=== PATIENT | male | born 1950 | race Caucasian/White ===

== ENCOUNTER 2020-02-29 08:02 | Outpatient (REF) | payer MEDICARE, MEDICAID, SELFPAY ==
[2020-02-29 09:19] LABS: Estimated Average Glucose 111 mg/dL; Hemoglobin A1c % 5.5 %
[2020-02-29 09:30] LABS: Alanine Aminotransferase 22 U/L (0-40); Albumin Level 4.4 g/dL (3.5-5.0); Alkaline Phosphatase 46 U/L (39-117); Anion Gap 13 (12-20); Aspartate Amino Transferase 18 U/L (5-37); Bilirubin Total 0.3 mg/dL (0.0-1.0); Blood Urea Nitrogen 18 mg/dL (9-16); Calcium 8.9 mg/dL (8.4-10.2); Carbon Dioxide 25 mmol/L (22-29); Chloride 103 mmol/L (96-108); Cholesterol 190 mg/dL; Estimated Glomerular Filt Rate 56; Glucose Fasting 109 mg/dL (60-99); HDL Cholesterol 49 mg/dL; LDL Cholesterol Calculated 128 mg/dl; Potassium 4.2 mmol/l (3.3-5.1); Sodium 137 mmol/L (135-145); Total Protein 6.7 g/dL (6.5-8.0); Triglycerides 66 mg/dL
[2020-02-29 10:02] LABS: Creatinine Urine 123.75 mg/dL
== END 2020-02-29 08:03 | disposition home or self-care (01) ==
LOC: HO.LAB 08:02
PROVIDERS: PCP Internal Medicine; Visit Provider Internal Medicine
DX: E11.65 Type 2 diabetes mellitus with hyperglycemia (principal); I10 Essential (primary) hypertension; E78.00 Pure hypercholesterolemia, unspecified; R94.5 Abnormal results of liver function studies; E66.3 Overweight
CPT/HCPCS: 36415; 80053; 80061; 82043; 83036

== ENCOUNTER 2020-03-11 07:57 | Outpatient (REF) | payer MEDICARE, MEDICAID, SELFPAY ==
--- NOTE | 2020-03-11 08:03 | XR_ITS ---
EXAMINATION: XR RIBS, LEFT AND CHEST PA CLINICAL INFORMATION: Chondrocostal junction syndrome COMPARISON: None TECHNIQUE: 3 views of the left ribs were obtained. Chest one view FINDINGS: CHEST: Lungs are clear. No consolidation, pneumothorax, or pleural effusion. The cardiomediastinal silhouette and pulmonary vasculature are normal. No gross bony abnormality seen. Left RIBS: Multiple views of left ribs reveal no visible fracture or bony abnormality especially where lead marker has been placed along the lower chest XR/XR ribs LT min 3V w CXR1V IMPRESSION: The lungs are hyperinflated but clear of acute process. The heart size and pulmonary vascularity is normal. No gross bony abnormality seen.
== END 2020-03-11 07:58 | disposition home or self-care (01) ==
LOC: HO.XRAY 07:57
PROVIDERS: PCP Internal Medicine; Visit Provider Internal Medicine
DX: M94.0 Chondrocostal junction syndrome [Tietze] (principal)
CPT/HCPCS: 71101

== ENCOUNTER 2020-10-03 07:44 | Outpatient (REF) | payer MEDICARE, SELFPAY ==
[2020-10-03 09:13] LABS: MANUAL DIFF FLAG NO
[2020-10-03 09:20] LABS: Basophils Absolute Auto 0.1 X10*3/uL (0.0-0.2); Basophils Percent Auto 1.5 % (0-2); Eosinophils Absolute Auto 0.2 X10*3/uL (0.0-0.4); Hematocrit 40.8 % (42-52); Hemoglobin 14.1 g/dl (14.0-18.0); Imm Gran Abs Auto 0.04 X10*3/uL (0.00-0.03); Imm Gran Pct Auto 0.9 % (0.0-0.4); Lymphocytes Absolute Auto 1.5 X10*3/uL (1.2-4.9); Mean Corpuscular HGB Conc 34.6 g/dl (31.0-36.0); Mean Corpuscular Hemoglobin 30.1 pg (27.0-33.0); Mean Corpuscular Volume 87.2 fL (80-98); Mean Platelet Volume 10.5 fL (9.4-12.4); Monocytes Absolute Auto 0.4 X10*3/uL (0.1-1.2); Monocytes Percent Auto 8.7 % (2-11); Neutrophils Absolute Auto 2.3 X10*3/uL (2.0-8.3); Neutrophils Percent Auto 50.9 % (45-73); Platelet Count 206 X10*3/uL (160-400); Red Blood Count 4.68 X10*6/uL (4.60-5.80); Red Cell Distribution Width 13.3 % (11.0-16.0); White Blood Count 4.6 X10*3/uL (4.8-10.8)
[2020-10-03 09:32] LABS: Estimated Average Glucose 108 mg/dL; Hemoglobin A1c % 5.4 %
[2020-10-03 09:41] LABS: Alanine Aminotransferase 23 U/L (0-40); Albumin Level 4.3 g/dL (3.5-5.0); Alkaline Phosphatase 48 U/L (39-117); Anion Gap 10 (12-20); Aspartate Amino Transferase 21 U/L (5-37); Bilirubin Total 0.6 mg/dL (0.0-1.0); Blood Urea Nitrogen 17 mg/dL (9-16); Calcium 9.2 mg/dL (8.4-10.2); Carbon Dioxide 26 mmol/L (22-29); Chloride 105 mmol/L (96-108); Cholesterol 190 mg/dL; Estimated Glomerular Filt Rate 60; Glucose Random 101 mg/dL (60-115); HDL Cholesterol 55 mg/dL; LDL Cholesterol Calculated 122 mg/dl; Potassium 4.2 mmol/L (3.3-5.1); Sodium 137 mmol/L (135-145); Total Protein 6.7 g/dL (6.5-8.0); Triglycerides 67 mg/dL
[2020-10-03 09:52] LABS: Creatinine Urine 48.52 mg/dL; Microalbumin Urine < 5.0 mg/L
[2020-10-03 10:03] LABS: Free T4 (Free Thyroxine) 0.86 ng/dL (0.71-1.85); Prostate Specific Antigen Scr 0.65 ng/mL (<0.05-4.0); Thyroid Stimulating Hormone 1.62 uIU/mL (0.32-4.0)
[2020-10-03 10:12] LABS: Folate 15.1 ng/mL (> or = 4.0); Vitamin B12 486 pg/mL (200-900)
== END 2020-10-03 07:45 | disposition home or self-care (01) ==
LOC: HO.LAB 07:44
PROVIDERS: PCP Internal Medicine; Visit Provider Internal Medicine
DX: Z12.5 Encounter for screening for malignant neoplasm of prostate (principal); E11.65 Type 2 diabetes mellitus with hyperglycemia; E78.00 Pure hypercholesterolemia, unspecified
CPT/HCPCS: 36415; 80053; 80061; 82043; 82607; 82746; 83036; 84153; 84439; 84443; 85025

== ENCOUNTER 2021-03-09 09:14 | Outpatient (REF) | payer MEDICARE, SELFPAY ==
[2021-03-09 09:34] LABS: MANUAL DIFF FLAG NO
[2021-03-09 09:53] LABS: Basophils Absolute Auto 0.1 X10*3/uL (0.0-0.2); Eosinophils Absolute Auto 0.3 X10*3/uL (0.0-0.4); Eosinophils Percent Auto 4.5 % (0-4); Hematocrit 44.1 % (42.0-52.0); Hemoglobin 14.7 g/dl (14.0-18.0); Imm Gran Abs Auto 0.02 X10*3/uL (0.00-0.03); Imm Gran Pct Auto 0.3 % (0.0-0.4); Lymphocytes Absolute Auto 2.2 X10*3/uL (1.2-4.9); Lymphocytes Percent Auto 37.4 % (20-40); Mean Corpuscular HGB Conc 33.3 g/dl (31.0-36.0); Mean Corpuscular Hemoglobin 29.5 pg (27.0-33.0); Mean Corpuscular Volume 88.6 fL (80.0-98.0); Mean Platelet Volume 9.8 fL (9.4-12.4); Monocytes Absolute Auto 0.5 X10*3/uL (0.1-1.2); Monocytes Percent Auto 7.9 % (2-11); Neutrophils Absolute Auto 2.9 x10*3/uL (2.0-8.3); Neutrophils Percent Auto 48.9 % (45-73); Platelet Count 199 X10*3/uL (160-400); Red Blood Count 4.98 X10*6/uL (4.60-5.80); Red Cell Distribution Width 13.3 % (11.0-16.0)
[2021-03-09 10:06] LABS: Estimated Average Glucose 114 mg/dL; Hemoglobin A1c % 5.6 %
[2021-03-09 10:18] LABS: Creatinine Urine 27.48 mg/dL
[2021-03-09 10:34] LABS: Alanine Aminotransferase 27 U/L (0-40); Albumin Level 4.4 g/dL (3.5-5.0); Alkaline Phosphatase 45 U/L (39-117); Anion Gap 11 (12-20); Aspartate Amino Transferase 21 U/L (5-37); Bilirubin Total 0.5 mg/dL (0.0-1.0); Blood Urea Nitrogen 18 mg/dL (9-16); Calcium 9.7 mg/dL (8.4-10.2); Carbon Dioxide 27 mmol/L (22-29); Chloride 105 mmol/L (96-108); Cholesterol 209 mg/dL; Estimated Glomerular Filt Rate 58; Glucose Random 105 mg/dL (60-115); HDL Cholesterol 53 mg/dL; LDL Cholesterol Calculated 142 mg/dl; Potassium 4.6 mmol/L (3.3-5.1); Sodium 138 mmol/L (135-145); Total Protein 7.2 g/dL (6.5-8.0); Triglycerides 72 mg/dL
[2021-03-09 10:40] LABS: Free T4 (Free Thyroxine) 0.86 ng/dL (0.71-1.85)
[2021-03-09 10:55] LABS: Folate 16.4 ng/mL (> or = 4.0); Vitamin B12 638 pg/mL (200-900)
== END 2021-03-09 09:15 | disposition home or self-care (01) ==
LOC: HO.LAB 09:14
PROVIDERS: PCP Internal Medicine; Visit Provider Internal Medicine
DX: E11.65 Type 2 diabetes mellitus with hyperglycemia (principal); E78.00 Pure hypercholesterolemia, unspecified
CPT/HCPCS: 36415; 80053; 80061; 82607; 82746; 83036; 84439; 84443; 85025

== ENCOUNTER 2021-09-06 08:02 | Outpatient (REF) | payer MEDICARE, SELFPAY ==
[2021-09-06 08:59] LABS: Estimated Average Glucose 117 mg/dL; Hemoglobin A1c % 5.7 %
[2021-09-06 09:34] LABS: Alanine Aminotransferase 26 U/L (0-40); Albumin Level 4.3 g/dL (3.5-5.0); Alkaline Phosphatase 41 U/L (39-117); Anion Gap 11 (12-20); Aspartate Amino Transferase 24 U/L (5-37); Bilirubin Total 0.4 mg/dL (0.0-1.0); Blood Urea Nitrogen 20 mg/dL (9-16); Calcium 9.2 mg/dL (8.4-10.2); Carbon Dioxide 25 mmol/L (22-29); Chloride 107 mmol/L (96-108); Cholesterol 210 mg/dL; Estimated Glomerular Filt Rate > 60; Glucose Random 99 mg/dL (60-115); HDL Cholesterol 51 mg/dL; LDL Cholesterol Calculated 145 mg/dl; Sodium 138 mmol/L (135-145); Total Protein 6.7 g/dL (6.5-8.0); Triglycerides 70 mg/dL
[2021-09-06 09:54] LABS: Prostate Specific Antigen Scr 0.58 ng/mL (<0.05-4.0)
== END 2021-09-06 08:03 | disposition home or self-care (01) ==
LOC: HO.LAB 08:02
PROVIDERS: PCP Internal Medicine; Visit Provider Internal Medicine
DX: Z12.5 Encounter for screening for malignant neoplasm of prostate (principal); E78.00 Pure hypercholesterolemia, unspecified
CPT/HCPCS: 36415; 80053; 80061; 83036; 84153; 86900; 86901

== ENCOUNTER → 2021-11-13 09:00 | Outpatient (BNVA) | payer SELFPAY | PROVIDERS: PCP Internal Medicine; Visit Provider Internal Medicine | DX: Z02.79 Encounter for issue of other medical certificate (principal) ==

== ENCOUNTER 2021-12-25 08:59 | Outpatient (REF) | payer MEDICARE, SELFPAY ==
[2021-12-25 09:21] LABS: MANUAL DIFF FLAG NO
[2021-12-25 09:34] LABS: Basophils Absolute Auto 0.1 X10*3/uL (0.0-0.2); Eosinophils Absolute Auto 0.2 X10*3/uL (0.0-0.4); Eosinophils Percent Auto 3.5 % (0-4); Hematocrit 44.8 % (42.0-52.0); Hemoglobin 15.2 g/dl (14.0-18.0); Imm Gran Abs Auto 0.02 X10*3/uL (0.00-0.03); Imm Gran Pct Auto 0.3 % (0.0-0.4); Lymphocytes Absolute Auto 2.3 X10*3/uL (1.2-4.9); Lymphocytes Percent Auto 38.1 % (20-40); Mean Corpuscular HGB Conc 33.9 g/dl (31.0-36.0); Mean Corpuscular Hemoglobin 29.1 pg (27.0-33.0); Mean Corpuscular Volume 85.8 fL (80.0-98.0); Mean Platelet Volume 9.9 fL (9.4-12.4); Monocytes Absolute Auto 0.5 X10*3/uL (0.1-1.2); Monocytes Percent Auto 8.5 % (2-11); Neutrophils Absolute Auto 2.9 x10*3/uL (2.0-8.3); Neutrophils Percent Auto 48.6 % (45-73); Platelet Count 200 X10*3/uL (160-400); Red Blood Count 5.22 X10*6/uL (4.60-5.80); Red Cell Distribution Width 13.6 % (11.0-16.0)
[2021-12-25 10:09] LABS: Estimated Average Glucose 120 mg/dL; Hemoglobin A1c % 5.8 %
[2021-12-25 10:28] LABS: Appearance Urine Clear; Color Urine Straw; Glucose Urine UA Negative (Negative); Leukocyte Esterase Urine Negative (Negative); Nitrite Urine Negative (Negative); Specific Gravity - Urine <= 1.005 (1.005-1.025); UMIC TRIGGER UA YES; Urine Blood Trace (Negative); Urine Ketones Negative (Negative); Urine Protein Negative (Neg-Trace)
[2021-12-25 10:54] LABS: Bacteria Urine None Seen (None Seen); RBC Urine 0-2 /HPF (0-2); Squamous Epithelial Cell Urine 0-2 /HPF (0-2); WBC Urine 0-5 /HPF (0-5)
[2021-12-25 10:55] LABS: Hyaline Casts Urine 0-2 /LPF (0-2)
[2021-12-25 10:58] LABS: Alanine Aminotransferase 33 U/L (0-40); Albumin Level 4.8 g/dL (3.5-5.0); Alkaline Phosphatase 47 U/L (39-117); Anion Gap 16 (12-20); Aspartate Amino Transferase 24 U/L (5-37); Bilirubin Total 0.6 mg/dL (0.0-1.0); Blood Urea Nitrogen 16 mg/dL (9-16); Calcium 9.6 mg/dL (8.4-10.2); Carbon Dioxide 25 mmol/L (22-29); Chloride 106 mmol/L (96-108); Cholesterol 171 mg/dL; Estimated Glomerular Filt Rate > 60; Glucose Random 102 mg/dL (60-115); HDL Cholesterol 58 mg/dL; LDL Cholesterol Calculated 101 mg/dl; Potassium 4.6 mmol/L (3.3-5.1); Sodium 142 mmol/L (135-145); Thyroid Stimulating Hormone 1.54 uIU/mL (0.32-4.0); Total Protein 7.4 g/dL (6.5-8.0); Triglycerides 61 mg/dL
== END 2021-12-25 09:00 | disposition home or self-care (01) ==
LOC: HO.LAB 08:59
PROVIDERS: PCP Internal Medicine; Visit Provider Internal Medicine
DX: E11.65 Type 2 diabetes mellitus with hyperglycemia (principal); R31.9 Hematuria, unspecified; E78.00 Pure hypercholesterolemia, unspecified
CPT/HCPCS: 36415; 80053; 80061; 81001; 83036; 84443; 85025

== ENCOUNTER 2022-01-29 09:05 | Outpatient (REF) | payer MEDICARE, SELFPAY ==
--- NOTE | ~2022-01-29 | CT_ITS ---
EXAMINATION: CT ABDOMEN AND PELVIS WITHOUT CONTRAST CLINICAL INFORMATION: Hematuria. COMPARISON: Ultrasound 09/14/2019 TECHNIQUE: Multidetector volumetric imaging was performed from the superior aspect of the liver through the pubic symphysis. Sagittal and coronal reformatted images were obtained on the technologist's workstation. This CT examination was performed using dose optimization techniques as appropriate, variously including the following: *Automated exposure control *Adjustment of mA and/or kV according to patient size (this includes techniques or standardized protocols for targeted exams where dose is matched to indication/reason for exam; i.e. extremities or head) *Use of iterative reconstruction technique DLP: 425 mGy-cm FINDINGS: LUNG BASES: The visualized lung bases are unremarkable. LIVER, GALLBLADDER, AND BILIARY TREE: The liver is normal in size, shape, and attenuation. No biliary ductal dilatation. Numerous cysts are seen throughout the liver. The largest is seen in the left lobe measuring 4.2 cm.. The gallbladder is unremarkable with no evidence of radiopaque gallstones, gallbladder wall thickening, or obvious pericholecystic inflammatory changes. PANCREAS: Unremarkable. SPLEEN: Unremarkable. ADRENAL GLANDS: Unremarkable. KIDNEYS AND URETERS: The kidneys are normal in size, shape, and attenuation. No hydronephrosis, hydroureter, or calculi seen. No perinephric stranding. Simple bilateral renal cysts. No specific follow-up is recommended. BLADDER: Unremarkable. GASTROINTESTINAL TRACT: The stomach is unremarkable. Normal caliber of the small bowel. There is no obstruction. Normal appendix. No colonic wall thickening or inflammatory change. Scattered colonic diverticulosis without diverticulitis. Mild to moderate diffuse colonic stool burden. No free air or free fluid. ABDOMINAL WALL: Fat-containing bilateral inguinal hernias. LYMPH NODES: Normal. VASCULAR: Normal caliber aorta with mild atherosclerotic calcification. PELVIC VISCERA: Calcifications in the prostate. The prostate measures 4.1 cm transverse. Multiple pelvic phleboliths. OSSEOUS STRUCTURES: No acute or suspicious osseous abnormality. Bilateral L5 pars defects with grade 2 anterolisthesis of L5 on S1. Disc space narrowing at this level. Mild degenerative changes in the hips. CT/CT abdomen pelvis wo IV con IMPRESSION: 1. No acute findings in the abdomen or pelvis. No hydronephrosis or nephrolithiasis. 2. Numerous hepatic and renal cysts. No follow-up recommended. Fleischner guidelines were followed.
== END 2022-01-29 09:06 | disposition home or self-care (01) ==
LOC: HO.CT 09:05
PROVIDERS: PCP Internal Medicine; Visit Provider Internal Medicine
DX: R31.9 Hematuria, unspecified (principal)
CPT/HCPCS: 74176

== ENCOUNTER 2022-03-06 09:06 | Outpatient (REF) | payer MEDICARE, SELFPAY ==
[2022-03-06 10:01] LABS: Estimated Average Glucose 120 mg/dL; Hemoglobin A1c % 5.8 %
[2022-03-06 10:14] LABS: Alanine Aminotransferase 29 U/L (0-40); Albumin Level 4.5 g/dL (3.5-5.0); Alkaline Phosphatase 46 U/L (39-117); Anion Gap 15 (12-20); Aspartate Amino Transferase 27 U/L (5-37); Bilirubin Total 0.6 mg/dL (0.0-1.0); Blood Urea Nitrogen 16 mg/dL (9-16); Calcium 9.5 mg/dL (8.4-10.2); Carbon Dioxide 26 mmol/L (22-29); Chloride 106 mmol/L (96-108); Cholesterol 149 mg/dL; Estimated Glomerular Filt Rate 51; Glucose Random 105 mg/dL (60-115); HDL Cholesterol 55 mg/dL; LDL Cholesterol Calculated 77 mg/dl; Potassium 4.5 mmol/L (3.3-5.1); Sodium 142 mmol/L (135-145); Triglycerides 85 mg/dL
== END 2022-03-06 09:07 | disposition home or self-care (01) ==
LOC: HO.LAB 09:06
PROVIDERS: PCP Internal Medicine; Visit Provider Internal Medicine
DX: E11.65 Type 2 diabetes mellitus with hyperglycemia (principal); E78.00 Pure hypercholesterolemia, unspecified
CPT/HCPCS: 36415; 80053; 80061; 83036

== ENCOUNTER 2022-05-09 08:50 | Outpatient (REF) | payer MEDICARE, SELFPAY ==
[2022-05-09 09:48] LABS: Anion Gap 11 (12-20); Blood Urea Nitrogen 20 mg/dL (9-16); Calcium 9.4 mg/dL (8.4-10.2); Carbon Dioxide 26 mmol/L (22-29); Chloride 107 mmol/L (96-108); Estimated Glomerular Filt Rate > 60; Glucose Random 102 mg/dL (60-115); Potassium 4.6 mmol/L (3.3-5.1); Sodium 139 mmol/L (135-145)
[2022-05-09 10:45] LABS: Bacteria Urine None Seen (None Seen); Hyaline Casts Urine 0-2 /LPF (0-2); RBC Urine 0-2 /HPF (0-2); Squamous Epithelial Cell Urine 0-2 /HPF (0-2); WBC Urine 0-5 /HPF (0-5)
[2022-05-09 10:46] LABS: Color Urine Yellow; Glucose Urine UA Negative (Negative); Leukocyte Esterase Urine Negative (Negative); Nitrite Urine Negative (Negative); Specific Gravity - Urine <= 1.005 (1.005-1.025); Urine Blood Negative (Negative); Urine Ketones Negative (Negative); Urine Protein Negative (Neg-Trace)
[2022-05-09 10:50] LABS: Appearance Urine Clear
== END 2022-05-09 08:51 | disposition home or self-care (01) ==
LOC: HO.LAB 08:50
PROVIDERS: PCP Internal Medicine; Visit Provider Internal Medicine
DX: R31.9 Hematuria, unspecified (principal)
CPT/HCPCS: 36415; 80048; 81001

== ENCOUNTER 2022-11-12 09:03 | Outpatient (AMB) | payer MEDICARE, SELFPAY ==
--- NOTE | 2022-11-12 09:11 | A.OFFVIS_ITS ---
Intake Vital Signs 11/12/22 09:12 Height 6 ft 2 in Weight 203 lb 4.259 oz BMI 26.1 BP 126/64 Blood Pressure Location Lt brachial Position Sitting Pulse 52 Intake Visit Reasons: pre colonoscopy screening Intake Note: Patient presents to in office visit today as a new patient for colonoscopy screening. CC: Patient denies having any GI concerns today. Last colonoscopy at [facility] 5 years ago with 2 polyps removed. Allergies No Known Allergies Allergy (Verified 11/12/22 09:17) HPI pre colonoscopy screening HPI Details 72 year old? male here today for pre col onoscopy screening.? Patient was sent to us by his PCP.? Last colonoscopy was 5 years ago done in [facility]. Two polyps found. Recommendation was made to return in 5 years for colorectal screening.? Patient denies any gastrointestinal symptoms in the past or at present.? Denies any personal or family history of gastrointestinal disease, colon polyps, or cancer.? Denies history of difficulty with sedation or anesthesia in the past.? Negative for history of sleep apnea.? Denies any history of cardiac, renal, pulmonary, or hepatic disease.?? No history of infectious? diseases like hepatitis A, B, C, HIV or tuberculosis.? Patient is not on any anticoagulation therapy. [facility] Medical History Hematuria Puncture wound of foot, left Costochondritis Schatzki's ring Hypercholesterolemia Hypertension Type 2 diabetes mellitus with hyperglycemia Surgical History H/O colonoscopy History of ventral hernia repair History of tonsillectomy Family History Father No problems noted. Mother No problems noted. Social History Housing: House Alcohol intake: current Patient Tobacco Use Status: Never used Tobacco e-Cigarette/Vaping Use: Never Used Second Hand Smoke Exposure: No service: No Current occupational status: employed Cognitive needs: No Hearing needs: No Vision needs: Yes Review of Systems Const Denies weight gain and Denies weight loss ENT Reports no additional complaints, Denies dysphagia and Denies odynophagia Card Reports no additional complaints Resp Reports no additional complaints GI Denies abdominal pain, Denies belching, Denies melena, Denies bloating, Denies change in bowel habits, Denies dysphagia, Denies excessive flatus, Denies dyspepsia, Denies heartburn, Denies diarrhea, Denies loose stools, Denies nausea, Denies odynophagia and Denies vomiting Reports no additional complaints Musc Reports no additional complaints Neuro Reports no additional complaints Psych Reports no additional complaints Endo Reports no additional complaints Physical Exam Vital Signs: Last Vital Signs Pulse 52 11/12/22 09:12 BP 126/64 11/12/22 09:12 BMI result Body Mass Index 26.1 Const General: healthy appearing, no acute distress and well developed Nutritional Appearance: well nourished Orientation/consciousness: patient oriented x3 HEENT Head: Yes normal to inspection, Yes normocephalic and Yes atraumatic Face and sinus: Yes normal facial exam Mouth: Normal oral and palatal mucosa present Throat: Yes posterior oropharynx normal, Yes tonsils normal and Yes uvula midline Eyes General: appearance normal, both eyes and all related structures Neck Neck: Yes normal visual inspection, Yes full ROM and Yes trachea midline Thyroid: Thyroid normal Resp Effort & Inspection: normal respiratory effort, able to speak in complete sentences, no tracheal deviation and symmetric chest movement Auscultation: clear to auscultation bilaterally Cardio Rate: regular rate Heart sounds: S1 normal heart sound present and S2 normal heart sound present GI Inspection: Yes normal to inspection, No distended and Yes obesity Palpation (GI): Soft to palpation, not firm, nontender and No hepatosplenomegaly present Auscultation: normal bowel sounds General: Yes no CVA tenderness Back/Spine/Pelvis Back: no CVA tenderness Skin General skin exam: elasticity normal, turgor normal and dry skin Neuro General: patient oriented x3 Psych Appearance: grossly normal Mental Status: mental status grossly normal Speech and movement: Normal speech and movement present Assessment & Plan Assessment & Plan (1) Tubular adenoma of colon: Comment: November 2017 Code(s): D12.6 - Benign neoplasm of colon, unspecified (2) Screen for colon cancer: Code(s): Z12.11 - Encounter for screening for malignant neoplasm of colon Plan: Patient denies any GI, cardiac or respiratory symptoms.? Denies any issues with anesthesia in the past.? Denies any history of sleep apnea.? No history infectious diseases in the past or present.? Not on any anticoagulation therapy.? Last colonoscopy in November of 2017 showed 2 polyps.? Patient denies melena, hematochezia, unintentional weight loss or ribbon like stools.? Discussed at length the pre-procedure,? prep, diet & medications as well as what to expect prior, during and after the procedure.?? Stressed the importance of good bowel prep. ?Recommended the use of Vaseline or Calmoseptine OTC & baby wipes with bowel movements to promote comfort.? ?Patient verbalizes understanding and agrees to plan of care.? He was given the opportunity to ask questions and all questions answered.? We will see him after the procedure.? Medications: New polyethylene glycol 3350 (Miralax) As directed by gastroenterology department at [facility] 238 grams PO ONCE 238 grams 0RF Z12.11 - Encounter for screening for malignant neoplasm of colon bisacodyl (Dulcolax (bisacodyl)) take 2 tabs at noon the day before your colonoscopy 10 mg (2 x 5 mg) PO ONCE 1 day 2 tabs 0RF Z12.11 - Encounter for screening for malignant neoplasm of colon Coding Level of Care Code New Pt Level 3 (33344) Diagnoses Tubular adenoma of colon D12.6 Screen for colon cancer Z12.11 Time Spent (min) 40 Comment 30 minutes spent with patient and additional 10 minute spent reviewing his records
[2022-11-12 09:12] VITALS: BP 126/64; PULSE 52; BMI 26.1
== END 2022-11-12 09:49 | disposition home or self-care (01) ==
PROVIDERS: PCP Internal Medicine; Visit Provider Nurse Practitioner Family
DX: D12.6 Benign neoplasm of colon, unspecified (principal); Z12.11 Encounter for screening for malignant neoplasm of colon
CPT/HCPCS: 99203

== ENCOUNTER → 2022-11-12 09:03 | Outpatient (BNVA) | payer MEDICARE, SELFPAY | PROVIDERS: PCP Internal Medicine; Visit Provider Nurse Practitioner Family ==

== ENCOUNTER 2022-12-19 09:00 | Outpatient (REF) | payer MEDICARE, SELFPAY ==
[2022-12-19 10:23] LABS: Appearance Urine Clear; Color Urine Yellow; Glucose Urine UA Negative (Negative); Leukocyte Esterase Urine Negative (Negative); Nitrite Urine Negative (Negative); PH 5.5 (5.0-9.0); Specific Gravity - Urine <= 1.005 (1.005-1.025); UMIC TRIGGER UA YES; Urine Blood Trace (Negative); Urine Ketones Negative (Negative); Urine Protein Negative (Neg-Trace)
[2022-12-19 10:29] LABS: Bacteria Urine None Seen (None Seen); Hyaline Casts Urine 0-2 /LPF (0-2); RBC Urine 0-2 /HPF (0-2); Squamous Epithelial Cell Urine 0-2 /HPF (0-2); WBC Urine 0-5 /HPF (0-5)
== END 2022-12-19 09:01 | disposition home or self-care (01) ==
LOC: HO.LAB 09:00
PROVIDERS: PCP Internal Medicine; Visit Provider Internal Medicine
DX: R31.9 Hematuria, unspecified (principal)
CPT/HCPCS: 81001

== ENCOUNTER 2023-02-19 06:32 | Day surgery (SDC) | payer MEDICARE, SELFPAY ==
[2023-02-15 14:16] VITALS: BMI 26.1
--- NOTE | 2023-02-18 11:57 | HO.ANESPROP2 ---
Documented by User: Natasha Quigley NP 02/18/23 11:59 HPI - Anesthesia Eval Consult details Narrative: 73yo M for Colonoscopy PMFSH Active Problems Active Problems: All Active Problems (Updated 02/15/23 @ 14:10 by Haily Higuera RN) Tubular adenoma of colon (Acute) COVID-19 virus infection (Acute) Right inguinal hernia (Acute) Diabetic neuropathy (Acute) Inguinal hernia unilateral, non-recurrent (Acute) Annual physical exam (Acute) Hematuria (Acute) Hypercholesterolemia (Acute) Hypertension (Acute) Type 2 diabetes mellitus with hyperglycemia (Acute) Past Medical History Medical History Hematuria Puncture wound of foot, left Costochondritis Schatzki's ring Hypercholesterolemia Hypertension Type 2 diabetes mellitus with hyperglycemia Family History Family History Father No problems noted. Mother No problems noted. Surgical History Surgical History H/O colonoscopy History of ventral hernia repair History of tonsillectomy Social History Social History Housing: House Alcohol intake: current Patient Tobacco Use Status: Never used Tobacco e-Cigarette/Vaping Use: Never Used Second Hand Smoke Exposure: No Are you DNR?: No Advance Directives: No Advance Directives Information Provided: Yes Nutrition Risks: No Nutritional Risk service: No Current occupational status: employed Cognitive needs: No Hearing needs: No Vision needs: Yes Meds Allergies Allergy/AdvReac Type Severity Reaction Status Date / Time No Known Allergies Allergy Verified 02/19/23 06:43 Home Medications Medication Instructions Recorded Confirmed Last Taken Type ascorbate calcium (vitamin C) 500 500 mg PO DAILY 03/07/20 02/15/23 Unknown History mg tablet inspdfdmdsa-hltzrzwdy-gja C-Mn 500 1 cap PO DAILY 03/07/20 02/15/23 Unknown History mg-400 mg capsule (Glucosamine-Chondroitin Complex) melatonin 3 mg tablet 3 mg PO BEDTIME PRN Insomnia 03/07/20 02/15/23 Unknown History vitamin A 2,400 mcg capsule 8,000 unit PO DAILY 03/07/20 02/15/23 Unknown History vitamin B complex 1 tab PO DAILY 03/07/20 02/15/23 Unknown History vitamin E (dl, acetate) 180 mg 400 unit PO DAILY 03/07/20 02/15/23 Unknown History (400 unit) capsule triamcinolone acetonide 0.1 % 1 appl topical BID 03/14/22 02/15/23 Unknown History topical ointment Exam Height,Weight and Vital Signs: Height 6 ft 2 in Weight 92.079 kg Assessment and Plan Assessment Anesthesia Assessment: Chart Reviewed Documented by User: Kingston Voss MD 02/19/23 07:56 [facility] Past Medical History Medical History Hematuria Puncture wound of foot, left Costochondritis Schatzki's ring Hypercholesterolemia Hypertension Type 2 diabetes mellitus with hyperglycemia Family History Family History Father No problems noted. Mother No problems noted. Family history of problems with anesthesia: No Surgical History Surgical History H/O colonoscopy History of ventral hernia repair History of tonsillectomy History of Problems with Anesthesia: No Social History Social History Housing: House Alcohol intake: current Patient Tobacco Use Status: Never used Tobacco e-Cigarette/Vaping Use: Never Used Second Hand Smoke Exposure: No Are you DNR?: No Advance Directives: No Advance Directives Information Provided: Yes Nutrition Risks: No Nutritional Risk service: No Current occupational status: employed Cognitive needs: No Hearing needs: No Vision needs: Yes Meds Allergies Allergy/AdvReac Type Severity Reaction Status Date / Time No Known Allergies Allergy Verified 02/19/23 06:43 Home Medications Medication Instructions Recorded Confirmed Last Taken Type ascorbate calcium (vitamin C) 500 500 mg PO DAILY 03/07/20 02/15/23 Unknown History mg tablet jmdsdozzmnl-[id number]-rmb C-Mn 500 1 cap PO DAILY 03/07/20 02/15/23 Unknown History mg-400 mg capsule (Glucosamine-Chondroitin Complex) melatonin 3 mg tablet 3 mg PO BEDTIME PRN Insomnia 03/07/20 02/15/23 Unknown History vitamin A 2,400 mcg capsule 8,000 unit PO DAILY 03/07/20 02/15/23 Unknown History vitamin B complex 1 tab PO DAILY 03/07/20 02/15/23 Unknown History vitamin E (dl, acetate) 180 mg 400 unit PO DAILY 03/07/20 02/15/23 Unknown History (400 unit) capsule triamcinolone acetonide 0.1 % 1 appl topical BID 03/14/22 02/15/23 Unknown History topical ointment Exam Airway Mallampati Class: II TM Dist: >3cm Neck ROM: Full Assessment and Plan Assessment Anesthesia Assessment: Anesthesia Plan Discussed Final Anesthetic Review Family History of Problems with Anesthesia: No History of Problems with Anesthesia: No NPO: Yes ASA Class: II Final Preanesthetic Review: No Changes in Pt Med Stat, Meds/Allgs Chart Reviewed, Consent Obtained/Reviewed and Anes Risks/Benef Reviewed Patient Risk: Low Procedure Risk: Low Anesthetic Plan Anesthetic Plan: MAC: Disposition: Standard PACU
--- NOTE | 2023-02-19 05:55 | MHC.SHP ---
Pre-Procedural Eval Section A Date of Service: 02/19/23 Section B Chief Complaint: Encounter for screening for malignant neoplasm of Relevant Family History (Specify if Yes): No Relevant Social History: None Present Medications: see Short Stay Collaborative assessment Medical History: Significant History (Hematuria Puncture wound of foot, left Costochondritis Schatzki's ring Hypercholesterolemia Hypertension Type 2 diabetes mellitus with hyperglycemia) History of Previous Operations: Relevant previous surgery/procedure and date(s) (H/O colonoscopy History of ventral hernia repair History of tonsillectomy) Allergies: Allergies Allergy/AdvReac Type Severity Reaction Status Date / Time No Known Allergies Allergy Verified 11/12/22 09:17 Review of Systems Sugical H&P ROS: Negative: Constitution, Cardiovascular, Respiratory, Neurological, Psychiatric, Hem-Onc, Allergic/Immunologic, Gastrointestinal, Genitourinary, Musculoskeletal, Integumentary, Endocrine and Eyes/Ears/Nose/Throat Exam Surgical H&P Exam: Normal: HEENT, Normal: Heart, Normal: Lungs, Normal: Extremities, Normal: Abdomen, Normal: Skin and Normal: Neurological Plan Diagnosis/Plan: Unchanged I have reviewed the history and physical and performed a pertinent physical examination on my patient. No changes have occurred unless specified. Time Spent With Patient Time: Total time managing care of this patient today ____ minutes.
[2023-02-19 06:41] VITALS: BMI 26.0
[2023-02-19] MEDS: Lactated Ringers 1,000 ML 100 ML IVCONT (06:47)
[2023-02-19 06:53] VITALS: BP 129/87; PULSE 72; RESP 18; TEMP 36.6; O2SAT 97
[2023-02-19 06:57] LABS: Glucose, Whole Blood 114 mg/dL (60-115)
--- NOTE | 2023-02-19 07:46 | P.OP_ITS ---
Operative Note Operative Note Date of Service: 02/19/23 Narrative: Operative Information Procedure Description: Colonoscopy Indication: screening Anesthesia: MAC COLONOSCOPY Instrument: Olympus variable stiffness pediatric scope 190L Colonoscopy Monitoring: Vital signs and clinical assessment, continuous EKG monitoring, Pulse oximetry, Carbon Dioxide monitoring and blood pressure monitoring were done throughout the procedure. Colon withdrawal time was 7 minutes. Procedure: The patient was placed in the left lateral decubitis position and pre-procedure medications were administered. After a digital rectal examination of the ano-rectum, the video colonoscope was inserted into the rectum and advanced through the colon to the cecum/TI. The colonoscope was slowly withdrawn in a retrograde panoramic fashion and the colon mucosa was carefully examined including a retroflexed view of the rectum. Findings and interventions are described below. Procedure Difficulty: moderate Findings: Terminal Ileum-normal Cecum:normal Ascending Colon: normal Transverse Colon -normal Descending Colon:normal Sigmoid Colon: mdoerate diverticulosis Rectum: Retroflexion with small internal hemorrhoids, grade I Anorectum - normal Colon preparation: Madison Bowel Preparation Scale Right colon; 2 Transverse colon: 2 Left colon; 3 (0 = Unprepared colon segment with mucosa not seen due to solid stool that cannot be cleared. 1 = Portion of mucosa of the colon segment seen, but other areas of the colon segment not well seen due to staining, residual stool and/or opaque liquid. 2 = Minor amount of residual staining, small fragments of stool and/or opaque liquid, but mucosa of colon segment seen well. 3 = Entire mucosa of colon segment seen well with no residual staining, small fragments of stool or opaque liquid) Impression and Post Procedure Diagnosis: internal hemorrhoids diverticular disease Plan: High fiber diet leaflet Avoid straining at stool, epsom salts and sitz bath, anusol supps or cream Repeat Colonoscopy in 10 years or earlier if clinically indicated Above findings were reviewed with the patient and relevant handouts were provided if indicated.
[2023-02-19 08:12] VITALS: BP 110/60; PULSE 61; RESP 17; TEMP 36.1; O2SAT 96
[2023-02-19 08:27] VITALS: BP 108/57; PULSE 64; RESP 16; TEMP 36.1; O2SAT 96
== END 2023-02-19 09:01 | disposition home or self-care (01) ==
PROVIDERS: PCP Internal Medicine; Visit Provider Internal Medicine Gastroenterology
PROC: 0DJD8ZZ Inspection of Lower Intestinal Tract, Via Natural or Artificial Opening Endoscopic (ICD-10-PCS; CPT 45378; principal; 2023-02-19 07:30)
DX: Z12.11 Encounter for screening for malignant neoplasm of colon (principal); Z86.010 Personal history of colon polyps; K57.30 Diverticulosis of large intestine without perforation or abscess without bleeding; K64.0 First degree hemorrhoids; K22.2 Esophageal obstruction; I10 Essential (primary) hypertension; E78.00 Pure hypercholesterolemia, unspecified; M94.0 Chondrocostal junction syndrome [Tietze]; R31.9 Hematuria, unspecified; E11.65 Type 2 diabetes mellitus with hyperglycemia; Z79.899 Other long term (current) drug therapy
CPT/HCPCS: G0105; 82947; J2704

== ENCOUNTER → 2023-02-19 06:32 | Outpatient (BNV) | payer MEDICARE, SELFPAY | PROVIDERS: PCP Internal Medicine; Visit Provider Internal Medicine Gastroenterology | DX: Z12.11 Encounter for screening for malignant neoplasm of colon (principal); K64.0 First degree hemorrhoids; K57.30 Diverticulosis of large intestine without perforation or abscess without bleeding | CPT/HCPCS: 45378 ==

== ENCOUNTER 2023-03-19 08:50 | Outpatient (REF) | payer MEDICARE, SELFPAY ==
[2023-03-19 09:15] LABS: MANUAL DIFF FLAG NO
[2023-03-19 10:32] LABS: Basophils Absolute Auto 0.1 X10*3/uL (0.0-0.2); Basophils Percent Auto 1.1 % (0-2); Eosinophils Absolute Auto 0.3 X10*3/uL (0.0-0.4); Eosinophils Percent Auto 5.6 % (0-4); Hematocrit 42.1 % (42.0-52.0); Hemoglobin 14.4 g/dl (14.0-18.0); Imm Gran Abs Auto 0.02 X10*3/uL (0.00-0.03); Imm Gran Pct Auto 0.4 % (0.0-0.4); Lymphocytes Absolute Auto 2.2 X10*3/uL (1.2-4.9); Lymphocytes Percent Auto 39.4 % (20-40); Mean Corpuscular HGB Conc 34.2 g/dl (31.0-36.0); Mean Corpuscular Hemoglobin 29.4 pg (27.0-33.0); Mean Corpuscular Volume 85.9 fL (80.0-98.0); Mean Platelet Volume 10.1 fL (9.4-12.4); Monocytes Absolute Auto 0.5 X10*3/uL (0.1-1.2); Monocytes Percent Auto 8.6 % (2-11); Neutrophils Absolute Auto 2.5 x10*3/uL (2.0-8.3); Neutrophils Percent Auto 44.9 % (45-73); Platelet Count 204 X10*3/uL (160-400); Red Cell Distribution Width 13.1 % (11.0-16.0); White Blood Count 5.6 X10*3/uL (4.8-10.8)
[2023-03-19 10:45] LABS: Estimated Average Glucose 123 mg/dL; Hemoglobin A1C 151.5833 umol/L; Hemoglobin A1c % 5.9 % (<6.0)
[2023-03-19 11:28] LABS: Alanine Aminotransferase 36 U/L (0-40); Albumin Level 4.4 g/dL (3.5-5.0); Alkaline Phosphatase 47 U/L (39-117); Anion Gap 11 (12-20); Aspartate Amino Transferase 24 U/L (5-37); Bilirubin Total 0.5 mg/dL (0.0-1.0); Blood Urea Nitrogen 16 mg/dL (9-16); Calcium 9.1 mg/dL (8.4-10.2); Carbon Dioxide 26 mmol/L (22-29); Chloride 107 mmol/L (96-108); Cholesterol 142 mg/dL (<200); Estimated Glomerular Filt Rate 59; Glucose Random 102 mg/dL (60-115); HDL Cholesterol 51 mg/dL (>40); LDL Cholesterol Calculated 76 mg/dL (<100); Potassium 4.1 mmol/L (3.3-5.1); Sodium 140 mmol/L (135-145); Total Protein 7.1 g/dL (6.5-8.0); Triglycerides 78 mg/dL (<150)
[2023-03-19 11:45] LABS: Folate 11.7 ng/mL (> or = 4.0); Prostate Specific Antigen Scr 0.48 ng/mL (<0.05-4.0); Vitamin B12 707 pg/mL (200-900)
[2023-03-19 11:50] LABS: Free T4 (Free Thyroxine) 0.81 ng/dL (0.71-1.85); Thyroid Stimulating Hormone 1.75 uIU/mL (0.32-4.0)
[2023-03-19 12:24] LABS: Creatinine Urine 33.34 mg/dL; Microalbumin Urine < 5.0 mg/L
== END 2023-03-19 08:51 | disposition home or self-care (01) ==
LOC: HO.LAB 08:50
PROVIDERS: PCP Internal Medicine; Visit Provider Internal Medicine
DX: Z12.5 Encounter for screening for malignant neoplasm of prostate (principal); E11.65 Type 2 diabetes mellitus with hyperglycemia; E78.00 Pure hypercholesterolemia, unspecified
CPT/HCPCS: 36415; 80053; 80061; 82043; 82570; 82607; 82746; 83036; 84153; 84439; 84443; 85025

== ENCOUNTER 2023-04-01 10:52 | Outpatient (AMB) | payer MEDICARE, SELFPAY ==
--- NOTE | 2023-04-01 11:02 | A.OFFPC_ITS ---
Vital Signs 04/01/23 11:04 04/01/23 11:10 Height 6 ft 2 in Weight 204 lb 8 oz BMI 26.3 BP 150/90 H 132/70 Blood Pressure Location Lt brachial Lt brachial Position Sitting Sitting Pulse 62 Pulse Source Pulse Oximeter Pulse Oximetry (%) 97 Oxygen Delivery Method Room Air Intake Visit Reasons: DM Intake Note: Patient is here to follow up on DM. Allied Health Teacher Required: No Bander And Cellophaner Machine Helper: Not Required per policy Accompanied by: Self / Same As Patient Allergies No Known Allergies Allergy (Verified 04/01/23 11:03) Tobacco use date assessed: 04/01/23 Fall risk assessment: No Falls in past year Last assessed Fall Risk: 04/01/23 Dental Screening Dental Screen Date: 04/01/23 Did you have a dental visit in the last 12 months?: Yes Did you have a dental problem in the last 6 months where you did not have access to dental care?: No Was dental information given to patient?: Patient has dentist HPI DM HPI Details 73-year-old male with controlled diabete s mellitus hypertension hypercholesterolemia right inguinal hernia coming in for follow-up. Patient had the colonoscopy done February 2023. [facility] Medical History Hematuria Puncture wound of foot, left Costochondritis Schatzki's ring Hypercholesterolemia Hypertension Type 2 diabetes mellitus with hyperglycemia Surgical History H/O colonoscopy History of ventral hernia repair History of tonsillectomy Family History (Updated 04/01/23 @ 11:02 by ONEYDA Love) Father No problems noted. Mother No problems noted. Social History (Updated 04/01/23 @ 11:09 by ONEYDA Love) Housing: House Alcohol intake: current Alcohol intake frequency: holidays/special occasions only Patient Tobacco Use Status: Never used Tobacco e-Cigarette/Vaping Use: Never Used Second Hand Smoke Exposure: No service: No Current occupational status: employed Cognitive needs: No Hearing needs: No Vision needs: Yes Questionnaire PHQ-9 Over the last 2 weeks, how often have you been bothered by any of the following problems? 1. Little interest or pleasure in doing things: not at all 2. Feeling down, depressed, or hopeless: not at all 3. Trouble falling or staying asleep, or sleeping too much: not at all 4. Feeling tired or having little energy: not at all 5. Poor appetite or overeating: not at all 6. Feeling bad about yourself - or that you are a failure or have let yourself or your family down: not at all 7. Trouble concentrating on things, such as reading the newspaper or watching television: not at all 8. Moving or speaking so slowly that other people could have noticed. Or the opposite - being so fidgety or restless that you have been moving around a lot more than usual: not at all 9. Thoughts that you would be better off or of hurting yourself in some way: not at all Total score: 0 Depression Screening Interpretation: Negative Depression Screening Done: Yes Source: Developed by Drs. Segun King, Corrine Lindsey, Jose Richard and colleagues, with an educational landon from [employer]. Thrive Questionnaire Date Thrive assessed: 04/01/23 I am a: Patient What is your living situation today?: I have a steady place to live Within the past 12 months, did the food you bought not last and you didn't have the money to get more?: Never true Within the past 12 months, did you worry whether your food would run out before you got money to buy more?: Never true Do you have trouble paying for medicines?: No Do you have trouble getting transportation to medical appointments?: No Do you have trouble paying your heating and electricity bill?: No Do you have trouble taking care of your child, family member or friend?: No Do you have trouble with day-to-day activities such as bathing, preparing meals, shopping, managing finances, etc.?: No Are you currently unemployed and looking for a job?: No Are you interested in more education?: No Currently or been in a relationship where the following occur: no concerns reported THRIVE Score: 0 AUDIT C Alcohol Use Questionnaire (AUDIT-C) 1. How often do you have a drink containing alcohol?: Monthly or less 2. How many drinks containing alcohol do you have on a typical day when you are drinking?: 1 or 2 Total Score: 1 RULA-7 AMB Questionnaire RULA-7 Date RULA - 7 assessed: 04/01/23 Feeling nervous, anxious, or on edge: 0 = Not at all Not being able to stop or control worryin = Not at all Worrying too much about different things: 0 = Not at all Trouble relaxin = Not at all Being so restless that it is hard to sit still: 0 = Not at all Becoming easily annoyed or irritable: 0 = Not at all Feeling afraid as if something awful might happen: 0 = Not at all Total RULA-7 score (0-4 normal; 5-9 mild; 10-14 moderate; 15-21 severe): 0 Source: Developed by Drs. Segun King, Corrine Lindsey, Jose Richard and colleagues, with an educational landon from [employer]. Physical exam (Primary Care) Vital Signs: Last Vital Signs Pulse 62 04/01/23 11:04 BP 132/70 04/01/23 11:10 Pulse Ox 97 04/01/23 11:04 Oxygen Delivery Method Room Air 04/01/23 11:04 BMI result Body Mass Index 26.3 Tobacco/Smoking Status: Tobacco use Status Tobacco use date assessed 04/01/23 04/01/23 11:08 Patient Tobacco Use Status Never used Tobacco 04/01/23 11:09 e-Cigarette/Vaping Use Never Used 04/01/23 11:09 PHQ-9: PHQ-9 Score PHQ-9: Total score 0 04/01/23 11:08 Depression Screening Interpretation: Negative Thrive Assessment: Date of Thrive Assessment Date Thrive assessed 04/01/23 04/01/23 11:08 Currently or been in a relationship where the following occur: no concerns reported Const General: alert; No acute distress Eyes Conjunctivae: conjunctivae normal Resp Auscultation: clear to auscultation bilaterally Cardio Rate: regular rate Rhythm: regular rhythm GI Inspection: Yes normal to inspection Extrem General: Yes normal to inspection and No edema Assessment and Plan Assessment & Plan (1) Type 2 diabetes mellitus with hyperglycemia: Comment: Dr. Gallegos Code(s): E11.65 - Type 2 diabetes mellitus with hyperglycemia Qualifiers: Diabetes mellitus predatory animal exterminator insulin use: without shelter use Qualified Code(s): E11.65 - Type 2 diabetes mellitus with hyperglycemia Plan: Decrease the amount of carbohydrate intake, pasta, bread, rice and potatoes are all sugar and that is aside from all the sweet stuff, remember that fruits are good but they are Sweet also. Hemoglobin A1c goal of less than 7.0 patient on diet control presently normal range hemoglobin A1c (2) Hypertension: Code(s): I10 - Essential (primary) hypertension Qualifiers: Hypertension type: essential hypertension Qualified Code(s): I10 - Essential (primary) hypertension Plan: Continue with blood pressure medication. Decrease salt intake and exercise patient takes lisinopril 5 mg once a day (3) Hypercholesterolemia: Code(s): E78.00 - Pure hypercholesterolemia, unspecified Plan: Avoid fried foods, chicken skin, eggs, butter margarine, pastries and meat. Be it pork or beef they have a lot of cholesterol LDL goal of less than 100 and triglyceride of less than 150 presently on atorvastatin 10 mg once a day Coding Level of Care Code Est Pt Level 4 (15561) Diagnoses Type 2 diabetes mellitus with hyperglycemia, without long-term current use of insulin E11.65 Diabetes mellitus predatory animal exterminator insulin use: without predatory animal exterminator use Essential hypertension I10 Hypertension type: essential hypertension Hypercholesterolemia E78.00
[2023-04-01 11:04] VITALS: BP 150/90; PULSE 62; O2SAT 97; BMI 26.3
[2023-04-01 11:10] VITALS: BP 132/70
== END 2023-04-01 11:23 | disposition home or self-care (01) ==
PROVIDERS: PCP Internal Medicine; Visit Provider Internal Medicine
DX: E11.65 Type 2 diabetes mellitus with hyperglycemia (principal); I10 Essential (primary) hypertension; E78.00 Pure hypercholesterolemia, unspecified
CPT/HCPCS: 99214

== ENCOUNTER 2023-08-27 08:02 | Outpatient (REF) | payer MEDICARE, SELFPAY ==
[2023-08-27 09:49] LABS: Creatinine Urine 53.24 mg/dL
== END 2023-08-27 08:03 | disposition home or self-care (01) ==
LOC: HO.LAB 08:02
PROVIDERS: PCP Internal Medicine; Visit Provider Internal Medicine
DX: E11.65 Type 2 diabetes mellitus with hyperglycemia (principal)
CPT/HCPCS: 82570

== ENCOUNTER 2023-09-03 12:39 | Outpatient (AMB) | payer MEDICARE, SELFPAY ==
[2023-09-03 12:45] VITALS: BP 124/72; PULSE 65; O2SAT 98; BMI 29.3
--- NOTE | 2023-09-03 12:45 | MHC.PC.OV ---
Vital Signs 09/03/23 12:45 Height 5 ft 10.5 in Weight 207 lb BMI 29.3 BP 124/72 Blood Pressure Location Lt brachial Position Sitting Pulse 65 Pulse Source Pulse Oximeter Pulse Oximetry (%) 98 Oxygen Delivery Method Room Air Intake Visit Reasons: pe Allergies No Known Allergies Allergy (Verified 09/03/23 12:46) Medication List - Last Reconciled 09/03/23 by Avery Sanchez MD ascorbate calcium (vitamin C) 500 mg PO DAILY atorvastatin 10 mg PO DAILY blood sugar diagnostic As directed check the blood sugar once a day 1 touch ultra test strips blood-glucose meter (Observe Medical Ultra2 Meter kit) As check the blood sugar once a day [id number] C-Mn 500-400 mg (Glucosamine-Chondroitin Complex) 1 cap PO DAILY lancets As directed daily check the blood sugar once a day lisinopril 5 mg PO DAILY melatonin 3 mg PO BEDTIME PRN triamcinolone acetonide 0.1% 1 appl topical BID vitamin A 8,000 units PO DAILY vitamin B complex 1 tab PO DAILY vitamin E (dl, acetate) 400 units PO DAILY Tobacco use date assessed: 04/01/23 Fall risk assessment: No Falls in past year Last assessed Fall Risk: 09/03/23 Dental Screening Dental Screen Date: 09/03/23 Did you have a dental visit in the last 12 months?: Yes Did you have a dental problem in the last 6 months where you did not have access to dental care?: No Was dental information given to patient?: Patient has dentist HPI pe HPI Details 73-year-old overweight male with controlled diabetes mellitus hypertension hypercholesterolemia last seen in March 2023. Patient is up-to-date with colonoscopy February 2023 [facility] Medical History Hematuria Puncture wound of foot, left Costochondritis Schatzki's ring Hypercholesterolemia Hypertension Type 2 diabetes mellitus with hyperglycemia Surgical History H/O colonoscopy History of ventral hernia repair History of tonsillectomy Family History (Updated 04/01/23 @ 11:02 by ONEYAD Love) Father No problems noted. Mother No problems noted. Social History (Updated 09/03/23 @ 13:21 by Avery Sanchez MD) Housing: House Alcohol intake: current Alcohol intake frequency: holidays/special occasions only Comment: 1 wine 6 weeks Patient Tobacco Use Status: Never used Tobacco e-Cigarette/Vaping Use: Never Used Second Hand Smoke Exposure: No service: No Current occupational status: employed Cognitive needs: No Hearing needs: No Vision needs: Yes Questionnaire PHQ-9 Over the last 2 weeks, how often have you been bothered by any of the following problems? 1. Little interest or pleasure in doing things: not at all 2. Feeling down, depressed, or hopeless: not at all 3. Trouble falling or staying asleep, or sleeping too much: not at all 4. Feeling tired or having little energy: not at all 5. Poor appetite or overeating: not at all 6. Feeling bad about yourself - or that you are a failure or have let yourself or your family down: not at all 7. Trouble concentrating on things, such as reading the newspaper or watching television: not at all 8. Moving or speaking so slowly that other people could have noticed. Or the opposite - being so fidgety or restless that you have been moving around a lot more than usual: not at all 9. Thoughts that you would be better off or of hurting yourself in some way: not at all Total score: 0 Depression Screening Interpretation: Negative Depression Screening Done: Yes Source: Developed by Drs. Segun King, Jose Godinez and colleagues, with an educational landon from [employer]. Thrive Questionnaire Date Thrive assessed: 04/01/23 AUDIT C Alcohol Use Questionnaire (AUDIT-C) 1. How often do you have a drink containing alcohol?: Monthly or less 2. How many drinks containing alcohol do you have on a typical day when you are drinking?: 1 or 2 Total Score: 1 RULA-7 AMB Questionnaire RULA-7 Date RULA - 7 assessed: 04/01/23 Source: Developed by Drs. Segun King, Jose Godinez and colleagues, with an educational landon from [employer]. Review of Systems Const Denies poor appetite and Denies weakness Eyes Denies no additional complaints ENT Reports Normal hearing present, Denies dizziness, Denies nasal congestion, Denies tinnitus and Denies sore throat Card Denies chest pain, Denies syncope, Denies rapid heart rate and Denies dyspnea Resp Denies cough and Denies dyspnea GI Denies change in stool character, Reports constipation, Denies diarrhea, Denies nausea and Denies vomiting Denies dysuria and Denies urinary frequency Neuro Reports Normal hearing present, Denies confusion, Denies dizziness, Denies syncope and Denies weakness Psych Denies confusion Physical exam (Primary Care) Vital Signs: Last Vital Signs Pulse 65 09/03/23 12:45 BP 124/72 09/03/23 12:45 Pulse Ox 98 09/03/23 12:45 Oxygen Delivery Method Room Air 09/03/23 12:45 BMI result Body Mass Index 29.3 Tobacco/Smoking Status: Tobacco use Status Tobacco use date assessed 04/01/23 09/03/23 12:46 Patient Tobacco Use Status Never used Tobacco 09/03/23 12:46 e-Cigarette/Vaping Use Never Used 09/03/23 12:46 PHQ-9: PHQ-9 Score PHQ-9: Total score 0 09/03/23 12:57 Depression Screening Interpretation: Negative Thrive Assessment: Date of Thrive Assessment Date Thrive assessed 04/01/23 09/03/23 12:46 Const General: No confusion Orientation/consciousness: No confusion HENMT Head: Yes normocephalic Ears: external ears normal and TM's normal bilaterally Face and sinus: Yes normal facial exam Mouth: moist mucous membranes Throat: Yes tonsils normal Eyes Conjunctivae: conjunctivae normal Pupils: Equal, round and reactive pupils present and Pupil accommodation reflex normal Direct Ophthalmoscopy: normal light reflex Neck Neck: No lymphadenopathy Thyroid: Thyroid normal Chest Chest palpation & inspection: normal inspection of the chest Resp Effort & Inspection: normal respiratory effort and no audible wheezes Auscultation: clear to auscultation bilaterally, no crackles, no wheezes and lung sounds not diminished Cardio Rate: regular rate Rhythm: regular rhythm Peripheral pulses: radial pulses present and dorsalis pedis present GI Other: colon test 02/2023, pin prick sensory problem of not feeling , pedal pulses good Palpation (GI): no masses Auscultation: normal bowel sounds and normoactive bowel sounds Rectal Exam - Male: Yes deferred Other: R inguinal hernia felt Skin General skin exam: no rashes or lesions noted Rashes: no rashes Neuro General: No confusion Cranial nerves: Yes Equal, round and reactive pupils present and Yes Normal hearing present Cognition (Neuro): normal cognition Gait exam (Neuro): Normal gait present Motor exam (neuro): 5/5 motor strength present throughout Deep tendon reflexes (DTR's): Right brachioradialis reflex intensity grade: 2+, Left brachioradialis reflex intensity grade: 2+, Right patellar reflex intensity grade: 2+ and Left patellar reflex intensity grade: 2+ Extrem General: No edema Results AMB Hemoglobin A1c AMB Hemoglobin A1c 6.5 % Last Edit by Yovana Huynh CMA on 09/03/23 12:58 Results Reviewed Results Reviewed: Laboratory Last Values Hgb A1c (Clinic) 6.5 % (4.0-6.0) H 09/03/23 12:46 Assessment and Plan Assessment & Plan (1) Annual physical exam: Code(s): Z00.00 - Encounter for general adult medical examination without abnormal findings Plan: Patient is advised to eat healthy, keep well hydrated, keep active and have adequate sleep. (2) Type 2 diabetes mellitus with hyperglycemia: Comment: Dr. Gallegos Code(s): E11.65 - Type 2 diabetes mellitus with hyperglycemia Qualifiers: Diabetes mellitus longterm insulin use: without longterm use Qualified Code(s): E11.65 - Type 2 diabetes mellitus with hyperglycemia Plan: Decrease the amount of carbohydrate intake, pasta, bread, rice and potatoes are all sugar and that is aside from all the sweet stuff, remember that fruits are good but they are Sweet also. Hemoglobin A1c goal of less than 7.0 (3) Hypertension: Code(s): I10 - Essential (primary) hypertension Qualifiers: Hypertension type: essential hypertension Qualified Code(s): I10 - Essential (primary) hypertension Plan: Continue with blood pressure medication. Decrease salt intake and exercise on lisinopril 5 mg once a day (4) Hypercholesterolemia: Code(s): E78.00 - Pure hypercholesterolemia, unspecified Plan: Avoid fried foods, chicken skin, eggs, butter margarine, pastries and meat. Be it pork or beef they have a lot of cholesterol LDL goal of 100 and triglyceride of less than 150 on atorvastatin 10 mg once a day (5) Diabetic neuropathy: Code(s): E11.40 - Type 2 diabetes mellitus with diabetic neuropathy, unspecified Plan: Discussed about checking of bilateral feet due to sensory problem (6) Onychomycosis: Code(s): B35.1 - Tinea unguium Plan: continue to monitor Orders: Orders AMB Hemoglobin A1c Today Z13.9 - Encounter for screening, unspecified Complete Blood Count Auto Diff 5 Months E11.65 - Type 2 diabetes mellitus with hyperglycemia Comprehensive Met. Panel 5 Months E11.65 - Type 2 diabetes mellitus with hyperglycemia Free T4 (Free Thyroxine) 5 Months E11.65 - Type 2 diabetes mellitus with hyperglycemia Lipid Panel 5 Months E11.65 - Type 2 diabetes mellitus with hyperglycemia, E78.00 - Pure hypercholesterolemia, unspecified Creatinine Urine 5 Months E11.65 - Type 2 diabetes mellitus with hyperglycemia Thyroid Stimulating Hormone 5 Months E11.65 - Type 2 diabetes mellitus with hyperglycemia Vitamin B12 and Folate 5 Months E11.65 - Type 2 diabetes mellitus with hyperglycemia Prostate Specific Antigen Scr 5 Months E11.65 - Type 2 diabetes mellitus with hyperglycemia Microalbumin, Random (w Creat) 5 Months E11.65 - Type 2 diabetes mellitus with hyperglycemia Medications: New ciclopirox 8% 1 appl topical DAILY 4 weeks 6.6 mL 1RF B35.1 - Tinea unguium Coding Level of Care Code Est Pt Prev Care >65y(19509) Diagnoses Annual physical exam Z00.00 Type 2 diabetes mellitus with hyperglycemia, without long-term current use of insulin E11.65 Diabetes mellitus termite treater insulin use: without termite treater use Essential hypertension I10 Hypertension type: essential hypertension Hypercholesterolemia E78.00 Diabetic neuropathy E11.40 Onychomycosis B35.1
== END 2023-09-03 13:41 | disposition home or self-care (01) ==
PROVIDERS: PCP Internal Medicine; Visit Provider Internal Medicine
DX: Z00.00 Encounter for general adult medical examination without abnormal findings (principal); E11.65 Type 2 diabetes mellitus with hyperglycemia; E11.40 Type 2 diabetes mellitus with diabetic neuropathy, unspecified; B35.1 Tinea unguium; I10 Essential (primary) hypertension; E78.00 Pure hypercholesterolemia, unspecified
CPT/HCPCS: 83036; 99397

== ENCOUNTER 2024-03-04 08:58 | Outpatient (REF) | payer MEDICARE, SELFPAY ==
[2024-03-04 09:19] LABS: MANUAL DIFF FLAG NO
[2024-03-04 09:36] LABS: Basophils Absolute Auto 0.1 X10*3/uL (0.0-0.2); Eosinophils Absolute Auto 0.2 X10*3/uL (0.0-0.4); Eosinophils Percent Auto 3.3 % (0-4); Hematocrit 42.8 % (42.0-52.0); Hemoglobin 14.8 g/dl (14.0-18.0); Imm Gran Abs Auto 0.02 X10*3/uL (0.00-0.03); Imm Gran Pct Auto 0.3 % (0.0-0.4); Lymphocytes Absolute Auto 2.7 X10*3/uL (1.2-4.9); Lymphocytes Percent Auto 44.1 % (20-40); Mean Corpuscular HGB Conc 34.6 g/dl (31.0-36.0); Mean Corpuscular Hemoglobin 29.5 pg (27.0-33.0); Mean Corpuscular Volume 85.4 fL (80.0-98.0); Mean Platelet Volume 9.9 fL (9.4-12.4); Monocytes Absolute Auto 0.5 X10*3/uL (0.1-1.2); Monocytes Percent Auto 8.4 % (2-11); Neutrophils Absolute Auto 2.6 x10*3/uL (2.0-8.3); Neutrophils Percent Auto 42.9 % (45-73); Platelet Count 195 X10*3/uL (160-400); Red Blood Count 5.01 X10*6/uL (4.60-5.80); Red Cell Distribution Width 13.3 % (11.0-16.0); White Blood Count 6.1 X10*3/uL (4.8-10.8)
[2024-03-04 10:18] LABS: Alanine Aminotransferase 62 U/L (0-40); Albumin Level 4.5 g/dL (3.5-5.0); Alkaline Phosphatase 47 U/L (39-117); Anion Gap 8 (12-20); Aspartate Amino Transferase 37 U/L (5-37); Bilirubin Total 0.4 mg/dL (0.0-1.0); Blood Urea Nitrogen 17 mg/dL (9-16); Calcium 9.6 mg/dL (8.4-10.2); Carbon Dioxide 27 mmol/L (22-29); Chloride 109 mmol/L (96-108); Cholesterol 133 mg/dL (<200); Estimated Glomerular Filt Rate > 60; Glucose Random 111 mg/dL (60-115); HDL Cholesterol 49 mg/dL (>40); LDL Cholesterol Calculated 72 mg/dL (<100); Potassium 4.2 mmol/L (3.3-5.1); Sodium 140 mmol/L (135-145); Total Protein 7.5 g/dL (6.5-8.0); Triglycerides 62 mg/dL (<150)
[2024-03-04 10:19] LABS: Creatinine Urine 23.64 mg/dL; Microalbumin Urine < 5.0 mg/L
[2024-03-04 10:35] LABS: Free T4 (Free Thyroxine) 0.84 ng/dL (0.71-1.85); Thyroid Stimulating Hormone 1.64 uIU/mL (0.32-4.0)
[2024-03-04 10:46] LABS: Folate 13.3 ng/mL (> or = 4.0); Prostate Specific Antigen Scr 0.52 ng/mL (<0.05-4.0); Vitamin B12 667 pg/mL (200-900)
== END 2024-03-04 08:59 | disposition home or self-care (01) ==
LOC: HO.LAB 08:58
PROVIDERS: PCP Internal Medicine; Visit Provider Internal Medicine
DX: E11.65 Type 2 diabetes mellitus with hyperglycemia (principal); E78.00 Pure hypercholesterolemia, unspecified; Z12.5 Encounter for screening for malignant neoplasm of prostate
CPT/HCPCS: 36415; 80053; 80061; 82043; 82570; 82607; 82746; 84153; 84439; 84443; 85025

== ENCOUNTER 2024-03-09 08:58 | Outpatient (AMB) | payer MEDICARE, SELFPAY ==
--- NOTE | 2024-03-09 09:10 | MHC.PC.OV ---
Vital Signs 03/09/24 09:12 Height 5 ft 10.2 in Weight 212 lb 4 oz BMI 30.3 BP 118/70 Blood Pressure Location Lt brachial Position Sitting Pulse 61 Pulse Source Pulse Oximeter Temp 97.1 F Temp Source Skin Pulse Oximetry (%) 95 Oxygen Delivery Method Room Air Intake Visit Reasons: DM Intake Note: Patient is here to follow up on DM. 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: Not Required per policy Accompanied by: Self / Same As Patient Allergies No Known Allergies Allergy (Verified 03/09/24 09:11) Medication List - Last Reconciled 03/09/24 by Avery Sanchez MD ascorbate calcium (vitamin C) 500 mg PO DAILY atorvastatin 10 mg PO DAILY blood sugar diagnostic As directed check the blood sugar once a day 1 touch ultra test strips blood sugar diagnostic ([employer] Ultra Test strips) As directed check blood sugar once per day blood-glucose meter ([employer] Ultra2 Meter kit) As check the blood sugar once a day ciclopirox 8% 1 appl topical DAILY 4 weeks tfyqrszf-njxvd-ztooj-CF borate 750 mg-100 mg- 1.65 mg-108 mg (Move Free [employer] [facility]) tabs PO fturvptxfcv-urunvmzuw-fyr C-Mn 500-400 mg (Glucosamine-Chondroitin Complex) 1 cap PO DAILY lancets As directed daily check the blood sugar once a day lisinopril 5 mg PO DAILY melatonin 3 mg PO BEDTIME PRN triamcinolone acetonide 0.1% 1 appl topical BID vitamin A 8,000 units PO DAILY vitamin B complex 1 tab PO DAILY vitamin E (dl, acetate) 400 units PO DAILY Tobacco use date assessed: 03/09/24 Fall risk assessment: No Falls in past year Last assessed Fall Risk: 03/09/24 Dental Screening Dental Screen Date: 03/09/24 Did you have a dental visit in the last 12 months?: Yes Did you have a dental problem in the last 6 months where you did not have access to dental care?: No Was dental information given to patient?: Patient has dentist HPI DM HPI Details The patient is a 74-year-old male presenting with a routine follow-up visit for chronic disease management and a wellness check. He has a history of hyperlipidemia, for which he is currently taking atorvastatin 10 mg. His lipid panel reveals that his LDL cholesterol level is well-controlled at 72 mg/dL. The patient also has a history of hypertension, managed with lisinopril 5 mg daily. His blood pressure has remained stable with this treatment. The patient has been diagnosed with Type 2 Diabetes Mellitus, with the most recent A1c recorded at 6.6%, slightly elevated from a previous measurement of 6.5%. The patient reports dietary modifications and acknowledges some challenges during the holiday season. He mentions following a keto diet previously, which had successfully improved his glucose levels. Additionally, the patient has been noted to have fatty liver with mildly elevated liver enzymes. Previous imaging showed cysts without significant concern. His creatinine level stands at 1.18 mg/dL, indicating mild chronic kidney disease. The patient takes Movefree, containing glucosamine and chondroitin, specifically for joint health issues, and vitamin C as a supplement. The patient reports no visual changes or bowel and urinary issues, except for occasional nocturia occurring once or twice a week. He sees Dr. Mae for ophthalmologic evaluations, the last of which occurred in December with no noted issues. He was screened for colorectal health with a colonoscopy in 2023, yielding normal results. Concerns were raised regarding flu season, and the patient is advised to maintain preventive measures during ongoing flu, COVID-19, and RSV prevalence. [facility] Medical History Hematuria Puncture wound of foot, left Costochondritis Schatzki's ring Hypercholesterolemia Hypertension Type 2 diabetes mellitus with hyperglycemia Surgical History H/O colonoscopy History of ventral hernia repair History of tonsillectomy Family History Father No problems noted. Mother No problems noted. Social History Housing: House Alcohol intake: current Alcohol intake frequency: holidays/special occasions only Comment: 1 wine 6 weeks Patient Tobacco Use Status: Never used Tobacco e-Cigarette/Vaping Use: Never Used Second Hand Smoke Exposure: No service: No Current occupational status: employed Cognitive needs: No Hearing needs: No Vision needs: Yes Questionnaire PHQ-9 Over the last 2 weeks, how often have you been bothered by any of the following problems? 1. Little interest or pleasure in doing things: not at all 2. Feeling down, depressed, or hopeless: not at all 3. Trouble falling or staying asleep, or sleeping too much: not at all 4. Feeling tired or having little energy: not at all 5. Poor appetite or overeating: not at all 6. Feeling bad about yourself - or that you are a failure or have let yourself or your family down: not at all 7. Trouble concentrating on things, such as reading the newspaper or watching television: not at all 8. Moving or speaking so slowly that other people could have noticed. Or the opposite - being so fidgety or restless that you have been moving around a lot more than usual: not at all 9. Thoughts that you would be better off or of hurting yourself in some way: not at all Total score: 0 Depression Screening Interpretation: Negative Depression Screening Done: Yes Source: Developed by Drs. Segun King, Corrine Lindsey, Jose Richard and colleagues, with an educational landon from [employer] Thrive Questionnaire Date Thrive assessed: 03/09/24 I am a: Patient What is your living situation today?: I have a steady place to live Within the past 12 months, did the food you bought not last and you didn't have the money to get more?: Never true Within the past 12 months, did you worry whether your food would run out before you got money to buy more?: Never true Do you have trouble paying for medicines?: No Do you have trouble getting transportation to medical appointments?: No Do you have trouble paying your heating and electricity bill?: No Do you have trouble taking care of your child, family member or friend?: No Do you have trouble with day-to-day activities such as bathing, preparing meals, shopping, managing finances, etc.?: No Are you currently unemployed and looking for a job?: No Are you interested in more education?: No Please select the resources that you would like help with: None Currently or been in a relationship where the following occur: No concerns reported THRIVE Score: 0 AUDIT C Alcohol Use Questionnaire (AUDIT-C) 1. How often do you have a drink containing alcohol?: Monthly or less 2. How many drinks containing alcohol do you have on a typical day when you are drinking?: 1 or 2 3. How often do you have six or more drinks on one occasion?: Never Total Score: 1 RULA-7 AMB Questionnaire RULA-7 Date RULA - 7 assessed: 03/09/24 Feeling nervous, anxious, or on edge: 0 = Not at all Not being able to stop or control worryin = Not at all Worrying too much about different things: 0 = Not at all Trouble relaxin = Not at all Being so restless that it is hard to sit still: 0 = Not at all Becoming easily annoyed or irritable: 0 = Not at all Feeling afraid as if something awful might happen: 0 = Not at all Total RULA-7 score (0-4 normal; 5-9 mild; 10-14 moderate; 15-21 severe): 0 Source: Developed by Drs. Segun King, Corrine Lindsey, Jose Richard and colleagues, with an educational landon from [employer] Physical exam (Primary Care) Vital Signs: Last Vital Signs Temp 97.1 F 03/09/24 09:12 Pulse 61 03/09/24 09:12 BP 118/70 03/09/24 09:12 Pulse Ox 95 03/09/24 09:12 Oxygen Delivery Method Room Air 03/09/24 09:12 BMI result Body Mass Index 30.3 Tobacco/Smoking Status: Tobacco use Status Tobacco use date assessed 03/09/24 03/09/24 09:19 Patient Tobacco Use Status Never used Tobacco 03/09/24 09:19 e-Cigarette/Vaping Use Never Used 03/09/24 09:19 PHQ-9: PHQ-9 Score PHQ-9: Total score 0 03/09/24 09:19 Depression Screening Interpretation: Negative Thrive Assessment: Date of Thrive Assessment Date Thrive assessed 03/09/24 03/09/24 09:19 Currently or been in a relationship where the following occur: No concerns reported Const General: alert; No acute distress Eyes Conjunctivae: conjunctivae normal Resp Auscultation: clear to auscultation bilaterally Cardio Rate: regular rate Rhythm: regular rhythm GI Inspection: Yes normal to inspection Extrem General: Yes normal to inspection and No edema Results AMB Hemoglobin A1c AMB Hemoglobin A1c 6.6 % Last Edit by ONEYDA Love on 03/09/24 09:22 Results Reviewed Results Reviewed: Laboratory Last Values Hgb A1c (Clinic) 6.6 % (4.0-6.0) H 03/09/24 09:10 Coding Level of Care Code Est Pt Level 4 (15234) Diagnoses Type 2 diabetes mellitus with hyperglycemia, without long-term current use of insulin E11.65 Diabetes mellitus terminal superintendent insulin use: without mcc use Essential hypertension I10 Hypertension type: essential hypertension Hypercholesterolemia E78.00 Assessment & Plan Assessment & Plan (1) Type 2 diabetes mellitus with hyperglycemia: Comment: Dr. Gallegos Code(s): E11.65 - Type 2 diabetes mellitus with hyperglycemia Category: Medical Qualifiers: Diabetes mellitus mcc insulin use: without mcc use Qualified Code(s): E11.65 - Type 2 diabetes mellitus with hyperglycemia Plan: Decrease the amount of carbohydrate intake, pasta, bread, rice and potatoes are all sugar and that is aside from all the sweet stuff, remember that fruits are good but they are Sweet also. Diet control hemoglobin A1c goal of less than 7.0. (2) Hypertension: Code(s): I10 - Essential (primary) hypertension Category: Medical Qualifiers: Hypertension type: essential hypertension Qualified Code(s): I10 - Essential (primary) hypertension Plan: Continue with blood pressure medication. Decrease salt intake and exercise controlled has lisinopril 5 mg once a day (3) Hypercholesterolemia: Code(s): E78.00 - Pure hypercholesterolemia, unspecified Category: Medical Plan: Avoid fried foods, chicken skin, eggs, butter margarine, pastries and meat. Be it pork or beef they have a lot of cholesterol LDL goal of less than 100 and triglyceride of less than 150. On atorvastatin doing great. Plan - Continue atorvastatin 10 mg for hyperlipidemia. - Maintain lisinopril 5 mg daily for hypertension management. - Continue monitoring glucose control with regular A1c checks and encourage dietary management for Type 2 Diabetes Mellitus. Advise maintaining a balanced diet with low carbohydrate intake. - Follow recommendations for fatty liver management through dietary modifications reducing fat intake. - Continue periodic monitoring of liver enzyme levels and kidney function, given the mild chronic kidney disease and history of elevated liver enzymes. - Advise the patient to maintain preventive health measures during flu season, including hand hygiene and vaccinations as recommended. - Continue Movefree for joint health, acknowledging patient-reported efficacy. Orders: Orders AMB Hemoglobin A1c Today E11.65 - Type 2 diabetes mellitus with hyperglycemia
[2024-03-09 09:12] VITALS: BP 118/70; PULSE 61; TEMP 36.2; O2SAT 95; BMI 30.3
== END 2024-03-09 09:49 | disposition home or self-care (01) ==
PROVIDERS: PCP Internal Medicine; Visit Provider Internal Medicine
DX: E11.65 Type 2 diabetes mellitus with hyperglycemia (principal); I10 Essential (primary) hypertension; E78.00 Pure hypercholesterolemia, unspecified

== ENCOUNTER → 2024-03-09 08:58 | Outpatient (BNVA) | payer MEDICARE, SELFPAY | PROVIDERS: PCP Internal Medicine; Visit Provider Internal Medicine | DX: E11.65 Type 2 diabetes mellitus with hyperglycemia (principal); E78.00 Pure hypercholesterolemia, unspecified; I10 Essential (primary) hypertension | CPT/HCPCS: 83036; 99212 ==

== ENCOUNTER 2024-09-02 07:48 | Outpatient (REF) | payer MEDICARE, SELFPAY ==
[2024-09-02 07:59] LABS: MANUAL DIFF FLAG NO
[2024-09-02 08:24] LABS: Hematocrit 39.1 % (42.0-52.0); Hemoglobin 13.8 g/dl (14.0-18.0); Imm Gran Abs Auto 0.02 X10*3/uL (0.00-0.03); Imm Gran Pct Auto 0.4 % (0.0-0.4); Lymphocytes Absolute Auto 2.5 X10*3/uL (1.2-4.9); Mean Corpuscular HGB Conc 35.3 g/dl (31.0-36.0); Mean Corpuscular Hemoglobin 29.5 pg (27.0-33.0); Mean Corpuscular Volume 83.5 fL (80.0-98.0); NRBC Abs Auto 0.000 X10*3/uL (0.0-0.012); NRBC Pct Auto 0.0 /100WBC (0.0-0.2); Platelet Count 183 X10*3/uL (160-400); Red Blood Count 4.68 X10*6/uL (4.60-5.80); White Blood Count 5.7 X10*3/uL (4.8-10.8)
[2024-09-02 08:41] LABS: Hemoglobin A1C 170.9161 umol/L; Total Hemoglobin (HGBA1C) 3544.5054 umol/L
[2024-09-02 08:58] LABS: Alanine Aminotransferase 55 U/L (0-40); Albumin Level 4.4 g/dL (3.5-5.0); Alkaline Phosphatase 48 U/L (39-117); Anion Gap 10 (12-20); Aspartate Amino Transferase 40 U/L (5-37); Blood Urea Nitrogen 19 mg/dL (9-16); Calcium 9.2 mg/dL (8.4-10.2); Carbon Dioxide 23 mmol/L (22-29); Chloride 108 mmol/L (96-108); Cholesterol 128 mg/dL (<200); Estimated Glomerular Filt Rate 55; HDL Cholesterol 46 mg/dL (>40); Potassium 3.9 mmol/L (3.3-5.1); Sodium 137 mmol/L (135-145); Total Protein 6.9 g/dL (6.5-8.0); Triglycerides 98 mg/dL (<150)
[2024-09-02 09:06] LABS: Free T4 (Free Thyroxine) 0.85 ng/dL (0.71-1.85); Thyroid Stimulating Hormone 2.45 uIU/mL (0.32-4.0)
[2024-09-02 09:33] LABS: Folate 10.4 ng/mL (> or = 4.0); Vitamin B12 647 pg/mL (200-900)
== END 2024-09-02 07:49 | disposition home or self-care (01) ==
LOC: HO.LAB 07:48
PROVIDERS: PCP Internal Medicine; Visit Provider Internal Medicine
DX: E11.65 Type 2 diabetes mellitus with hyperglycemia (principal); E78.00 Pure hypercholesterolemia, unspecified
CPT/HCPCS: 36415; 80053; 80061; 82607; 82746; 83036; 84153; 84439; 84443; 85025

== ENCOUNTER 2024-09-07 08:48 | Outpatient (AMB) | payer MEDICARE, SELFPAY ==
--- NOTE | 2024-09-07 08:51 | MHC.PC.OV ---
Vital Signs 09/07/24 08:52 Height 5 ft 10.2 in Weight 208 lb BMI 29.7 BP 128/80 Blood Pressure Location Lt brachial Position Sitting Respiration 18 Pulse 70 Pulse Source Pulse Oximeter Temp 96.8 F Temp Source Temporal Artery Scan Pulse Oximetry (%) 97 Oxygen Delivery Method Room Air Intake Visit Reasons: Annual Exam Gas Cutter Required: No Accompanied by: Self / Same As Patient Allergies No Known Allergies Allergy (Verified 09/07/24 08:52) Medication List - Last Reconciled 09/07/24 by Avery Sanchez MD ascorbate calcium (vitamin C) 500 mg PO DAILY atorvastatin 10 mg PO DAILY blood sugar diagnostic As directed check the blood sugar once a day 1 touch ultra test strips blood sugar diagnostic ([employer] Ultra Test strips) As directed check blood sugar once per day blood-glucose meter ([employer] Ultra2 Meter kit) As check the blood sugar once a day ciclopirox 8% 1 appl topical DAILY 4 weeks [id number] borate 750 mg-100 mg- 1.65 mg-108 mg ([facility] 28msec [facility]) tabs PO lancets As directed daily check the blood sugar once a day lisinopril 5 mg PO DAILY melatonin 3 mg PO BEDTIME PRN triamcinolone acetonide 0.1% 1 appl topical BID vitamin A 8,000 units PO DAILY vitamin B complex 1 tab PO DAILY vitamin E (dl, acetate) 400 units PO DAILY Tobacco use date assessed: 09/07/24 Fall risk assessment: No Falls in past year Last assessed Fall Risk: 09/07/24 Dental Screening Dental Screen Date: 09/07/24 Did you have a dental visit in the last 12 months?: Yes Did you have a dental problem in the last 6 months where you did not have access to dental care?: No Was dental information given to patient?: Patient has dentist [facility] Medical History Hematuria Puncture wound of foot, left Costochondritis Schatzki's ring Hypercholesterolemia Hypertension Type 2 diabetes mellitus with hyperglycemia Surgical History H/O colonoscopy History of ventral hernia repair History of tonsillectomy Family History Father No problems noted. Mother No problems noted. Social History (Updated 09/07/24 @ 09:06 by Avery Sanchez MD) Housing: House Alcohol intake: current Alcohol intake frequency: holidays/special occasions only Comment: 1 wine 6 weeks, 1 bottle beer a week Patient Tobacco Use Status: Never used Tobacco e-Cigarette/Vaping Use: Never Used Second Hand Smoke Exposure: No service: No Current occupational status: employed Cognitive needs: No Hearing needs: No Vision needs: Yes Questionnaire PHQ-9 Over the last 2 weeks, how often have you been bothered by any of the following problems? 1. Little interest or pleasure in doing things: not at all 2. Feeling down, depressed, or hopeless: not at all 3. Trouble falling or staying asleep, or sleeping too much: not at all 4. Feeling tired or having little energy: not at all 5. Poor appetite or overeating: not at all 6. Feeling bad about yourself - or that you are a failure or have let yourself or your family down: not at all 7. Trouble concentrating on things, such as reading the newspaper or watching television: not at all 8. Moving or speaking so slowly that other people could have noticed. Or the opposite - being so fidgety or restless that you have been moving around a lot more than usual: not at all 9. Thoughts that you would be better off or of hurting yourself in some way: not at all Total score: 0 Depression Screening Interpretation: Negative Depression Screening Done: Yes Source: Developed by Drs. Segun King, Corrine Lindsey, Jose Richard and colleagues, with an educational landon from [employer]. Thrive Questionnaire Date Thrive assessed: 09/07/24 I am a: Patient What is your living situation today?: I have a steady place to live Within the past 12 months, did the food you bought not last and you didn't have the money to get more?: Never true Within the past 12 months, did you worry whether your food would run out before you got money to buy more?: Never true Do you have trouble paying for medicines?: No Do you have trouble getting transportation to medical appointments?: No Do you have trouble paying your heating and electricity bill?: Yes Do you have trouble taking care of your child, family member or friend?: No Do you have trouble with day-to-day activities such as bathing, preparing meals, shopping, managing finances, etc.?: No Are you currently unemployed and looking for a job?: No Are you interested in more education?: No Please select the resources that you would like help with: None Currently or been in a relationship where the following occur: No concerns reported THRIVE Score: 1 AUDIT C Alcohol Use Questionnaire (AUDIT-C) 1. How often do you have a drink containing alcohol?: Monthly or less 2. How many drinks containing alcohol do you have on a typical day when you are drinking?: 1 or 2 3. How often do you have six or more drinks on one occasion?: Never Total Score: 1 RULA-7 AMB Questionnaire RULA-7 Date RULA - 7 assessed: 09/07/24 Feeling nervous, anxious, or on edge: 0 = Not at all Not being able to stop or control worryin = Not at all Worrying too much about different things: 0 = Not at all Trouble relaxin = Not at all Being so restless that it is hard to sit still: 0 = Not at all Becoming easily annoyed or irritable: 0 = Not at all Feeling afraid as if something awful might happen: 1 = Several days Total RULA-7 score (0-4 normal; 5-9 mild; 10-14 moderate; 15-21 severe): 1 Source: Developed by Drs. Segun King, Corrnie Lindsey, Jose Richard and colleagues, with an educational landon from [employer]. Review of Systems Const Denies poor appetite and Denies weakness Eyes Denies no additional complaints ENT Reports Normal hearing present, Denies dizziness, Denies nasal congestion, Denies tinnitus and Denies sore throat Card Denies chest pain, Denies syncope, Denies rapid heart rate and Denies dyspnea Resp Denies cough and Denies dyspnea GI Denies change in stool character, Reports constipation, Denies diarrhea, Denies nausea and Denies vomiting Denies dysuria and Denies urinary frequency Neuro Reports Normal hearing present, Denies confusion, Denies dizziness, Denies syncope and Denies weakness Psych Denies confusion Physical exam (Primary Care) Vital Signs: Last Vital Signs Temp 96.8 F 09/07/24 08:52 Pulse 70 09/07/24 08:52 Resp 18 09/07/24 08:52 BP 128/80 09/07/24 08:52 Pulse Ox 97 09/07/24 08:52 Oxygen Delivery Method Room Air 09/07/24 08:52 BMI result Body Mass Index 29.7 Tobacco/Smoking Status: Tobacco use Status Tobacco use date assessed 09/07/24 09/07/24 09:01 Patient Tobacco Use Status Never used Tobacco 09/07/24 09:06 e-Cigarette/Vaping Use Never Used 09/07/24 09:06 PHQ-9: PHQ-9 Score PHQ-9: Total score 0 09/07/24 09:01 Depression Screening Interpretation: Negative Thrive Assessment: Date of Thrive Assessment Date Thrive assessed 09/07/24 09/07/24 09:01 Currently or been in a relationship where the following occur: No concerns reported Const General: No confusion Orientation/consciousness: No confusion HENMT Head: Yes normocephalic Ears: external ears normal and TM's normal bilaterally Face and sinus: Yes normal facial exam Mouth: moist mucous membranes Throat: Yes tonsils normal Eyes Conjunctivae: conjunctivae normal Pupils: Equal, round and reactive pupils present and Pupil accommodation reflex normal Direct Ophthalmoscopy: normal light reflex Neck Neck: No lymphadenopathy Thyroid: Thyroid normal Chest Chest palpation & inspection: normal inspection of the chest Resp Effort & Inspection: normal respiratory effort and no audible wheezes Auscultation: clear to auscultation bilaterally, no crackles, no wheezes and lung sounds not diminished Cardio Rate: regular rate Rhythm: regular rhythm Peripheral pulses: radial pulses present and dorsalis pedis present GI Other: guaiac negative mild prostate enlargement - asymptomatic pedal pulse good but problem pin prick , Mild R inguinal hernia Palpation (GI): no masses Auscultation: normal bowel sounds and normoactive bowel sounds Rectal Exam - Male: Yes deferred Skin General skin exam: no rashes or lesions noted Rashes: no rashes Neuro General: No confusion Cranial nerves: Yes Equal, round and reactive pupils present and Yes Normal hearing present Cognition (Neuro): normal cognition Gait exam (Neuro): Normal gait present Motor exam (neuro): 5/5 motor strength present throughout Deep tendon reflexes (DTR's): Right brachioradialis reflex intensity grade: 2+, Left brachioradialis reflex intensity grade: 2+, Right patellar reflex intensity grade: 2+ and Left patellar reflex intensity grade: 2+ Extrem General: No edema Coding Level of Care Code Est Pt Prev Care >65y(76453) Diagnoses Annual physical exam Z00.00 Type 2 diabetes mellitus with hyperglycemia, without long-term current use of insulin E11.65 Diabetes mellitus terminal block assembler insulin use: without fdc use Essential hypertension I10 Hypertension type: essential hypertension Hypercholesterolemia E78.00 Tubular adenoma of colon D12.6 Hearing deficit H91.90 Allergic rhinitis J30.9 Diabetic neuropathy E11.40 Right inguinal hernia K40.90 Assessment & Plan Assessment & Plan (1) Annual physical exam: Code(s): Z00.00 - Encounter for general adult medical examination without abnormal findings Category: Medical Plan: Patient is advised to eat healthy, keep well hydrated, keep active and have adequate sleep. (2) Type 2 diabetes mellitus with hyperglycemia: Comment: Dr. Gallegos Code(s): E11.65 - Type 2 diabetes mellitus with hyperglycemia Category: Medical Qualifiers: Diabetes mellitus fdc insulin use: without terminal block assembler use Qualified Code(s): E11.65 - Type 2 diabetes mellitus with hyperglycemia Plan: Decrease the amount of carbohydrate intake, pasta, bread, rice and potatoes are all sugar and that is aside from all the sweet stuff, remember that fruits are good but they are Sweet also. Hemoglobin A1c goal of less than 7.0. Patient is diet controlled (3) Hypertension: Code(s): I10 - Essential (primary) hypertension Category: Medical Qualifiers: Hypertension type: essential hypertension Qualified Code(s): I10 - Essential (primary) hypertension Plan: Continue with blood pressure medication. Decrease salt intake and exercise patient is on lisinopril 5 mg once a day (4) Hypercholesterolemia: Code(s): E78.00 - Pure hypercholesterolemia, unspecified Category: Medical Plan: Avoid fried foods, chicken skin, eggs, butter margarine, pastries and meat. Be it pork or beef they have a lot of cholesterol LDL goal of less than 100 and triglyceride of less than 150 on atorvastatin 10 mg once a day (5) Tubular adenoma of colon: Comment: November 2017, February 2023 Code(s): D12.6 - Benign neoplasm of colon, unspecified Category: Medical Plan: Patient is up-to-date with colonoscopy February 2023 (6) Hearing deficit: Code(s): H91.90 - Unspecified hearing loss, unspecified ear Category: Medical (7) Allergic rhinitis: Code(s): J30.9 - Allergic rhinitis, unspecified Category: Medical (8) Diabetic neuropathy: Code(s): E11.40 - Type 2 diabetes mellitus with diabetic neuropathy, unspecified Category: Medical (9) Right inguinal hernia: Code(s): K40.90 - Unilateral inguinal hernia, without obstruction or gangrene, not specified as recurrent Category: Medical Plan: avoid heavy lifting Plan History of Present Illness The patient is a 74-year-old male presenting for an annual physical examination and management of chronic conditions. The patient has a history of diabetes mellitus, which is currently diet-controlled with a hemoglobin A1c of 6.6, indicating good control without medication. His blood sugar was noted to be 123 mg/dL, which is higher than his usual range of 99 to 105 mg/dL. He is advised to maintain his current lifestyle to keep his diabetes under control. The patient also has hypertension, managed with lisinopril 5 mg daily, and his blood pressure is reported to be well-controlled. He has hypercholesterolemia, for which he takes atorvastatin 10 mg daily, achieving an LDL cholesterol level of 63 mg/dL, below the target of 100 mg/dL. The patient has a history of tubular adenoma of the colon, with his last colonoscopy performed in February 2023, showing no significant findings. He is on a five-year surveillance plan due to his age and previous negative results. The patient reports mild anemia with a hemoglobin level of 13.8 g/dL, slightly below his usual level of 14 g/dL. The anemia is being monitored, and further blood work is planned in three months to assess the cause, which may include chronic disease or iron deficiency. The patient has elevated liver function tests, with levels slightly above normal but stable compared to previous results, suggesting possible fatty liver disease. No significant changes were noted on previous imaging studies. The patient experiences allergic rhinitis, with symptoms of itchy and watery eyes, managed with Claritin. He was advised on alternative medications such as Bonnie and Zyrtec for better symptom control. The patient has a hernia, which is not currently at a surgical stage, and he is advised to avoid heavy lifting to prevent exacerbation. The patient reports hearing loss, confirmed by a failed whisper test, and is referred for a formal hearing assessment. Health Maintenance - Colonoscopy up to date as of February 2023 - Vaccinations: Shingles and tetanus shots up to date - Lifestyle: Advised to maintain hydration, healthy diet, and regular exercise Social History - Alcohol use: Consumes red wine occasionally, beer once a week during summer, rarely hard liquor - Tobacco use: Denies smoking - Recreational drug use: Denies use - Exercise: Walks for about an hour and 15 minutes daily Review of Systems - General: Denies fever, weight loss of 4 pounds noted - Cardiovascular: Denies chest pain, dyspnea, or palpitations - Respiratory: Denies cough or wheezing - Gastrointestinal: Denies nausea, vomiting, constipation, or diarrhea - Genitourinary: Denies dysuria, nocturia 0-1 times per night - Neurological: Denies dizziness or syncope - Musculoskeletal: Denies joint pain or swelling - Dermatological: Reports itchy and watery eyes due to allergies - Ears: Reports hearing loss Physical Exam General: Cooperative, healthy appearing, comfortable, no acute distress and well developed Orientation: Patient oriented x3 Limitations: No limitations Head: Normal to inspection Ears: Hearing test recommended due to failed whisper test Nose: Normal external nose present Face and sinus: Normal facial exam Eyes: Appearance normal, both eyes and all related structures; patient reports itching and watery eyes due to allergies Neck: Normal visual inspection and Yes full ROM Respiratory: Normal respiratory effort and able to speak in complete sentences. Clear to auscultation bilaterally Cardiovascular: Regular rate and rhythm. Normal S1 and S2 GI: Normal to inspection. Soft to palpation and nontender Skin: No rashes or lesions noted Neuro: Patient oriented x3 Extremities: Normal to inspection; patient reports numbness in feet, advised to check feet regularly due to diabetes Results - Labs: Hemoglobin 13.8 g/dL indicating mild anemia, blood sugar 123 mg/dL, hemoglobin A1c 6.6%, LDL cholesterol 63 mg/dL, elevated liver function tests - Tests: Colonoscopy in February 2023, no significant findings Plan The patient will continue with his current diabetes management plan, focusing on maintaining a healthy diet and regular exercise to keep his hemoglobin A1c below 7.0%. His hypertension will be managed with lisinopril 5 mg daily, and his hypercholesterolemia with atorvastatin 10 mg daily, aiming to keep LDL cholesterol below 100 mg/dL. The patient will undergo follow-up blood work in three months to monitor his anemia and assess potential causes such as iron deficiency or chronic disease. He is advised to avoid medications that may affect kidney function and to stay well-hydrated. For his elevated liver function tests, the patient will continue monitoring, with no immediate changes required as previous imaging showed no significant findings. The patient is advised to avoid alcohol and maintain a healthy lifestyle to prevent further liver damage. The patient will manage his allergic rhinitis with Claritin, and consider alternatives like Bonnie or Zyrtec if symptoms persist. He is also advised to use allergy eye drops as needed. The patient is advised to avoid heavy lifting to prevent exacerbation of his hernia, which is not currently at a surgical stage. He will be referred for a formal hearing assessment due to reported hearing loss. Patient was informed and verbally consented to the use of an ambient scribe for clinic note documentation during this visit. Discussion Notes During the visit, I discussed with the patient the importance of maintaining his current lifestyle to manage his diabetes and hypertension effectively. We reviewed his blood work results, noting mild anemia and elevated liver function tests, and planned follow-up testing in three months to monitor these conditions. I advised the patient on managing his allergic rhinitis with [id number] medications and discussed the potential need for a formal hearing assessment due to his reported hearing loss. Patient Instructions - Continue current diet and exercise regimen to manage diabetes and hypertension. - Take lisinopril and atorvastatin as prescribed. - Schedule follow-up blood work in three months. - Avoid medications that may affect kidney function, such as ibuprofen. - Use Claritin for allergy symptoms, consider Bonnie or Zyrtec if needed. - Avoid heavy lifting to prevent hernia exacerbation. - Schedule a hearing assessment. Orders: Orders Complete Blood Count Auto Diff 3 Months H91.90 - Unspecified hearing loss, unspecified ear Hemoglobin A1c 3 Months H91.90 - Unspecified hearing loss, unspecified ear Vitamin B12 and Folate 3 Months H91.90 - Unspecified hearing loss, unspecified ear Ferritin 3 Months H91.90 - Unspecified hearing loss, unspecified ear IRON PROFILE 3 Months H91.90 - Unspecified hearing loss, unspecified ear Reticulocyte Count 3 Months H91.90 - Unspecified hearing loss, unspecified ear Comprehensive Met. Panel 3 Months H91.90 - Unspecified hearing loss, unspecified ear Referrals Speech and Hearing Referral H91.90 - Unspecified hearing loss, unspecified ear Medications: Refilled atorvastatin 10 mg PO DAILY 90 tabs 3RF E78.00 - Pure hypercholesterolemia, unspecified
[2024-09-07 08:52] VITALS: BP 128/80; PULSE 70; RESP 18; TEMP 36; O2SAT 97; BMI 29.7
== END 2024-09-07 09:31 | disposition home or self-care (01) ==
LOC: HO.HMCH 08:49
PROVIDERS: PCP Internal Medicine; Visit Provider Internal Medicine
DX: Z00.00 Encounter for general adult medical examination without abnormal findings (principal); E11.65 Type 2 diabetes mellitus with hyperglycemia; I10 Essential (primary) hypertension; E11.40 Type 2 diabetes mellitus with diabetic neuropathy, unspecified; E78.00 Pure hypercholesterolemia, unspecified; D12.6 Benign neoplasm of colon, unspecified; H91.93 Unspecified hearing loss, bilateral; J30.9 Allergic rhinitis, unspecified; K40.90 Unilateral inguinal hernia, without obstruction or gangrene, not specified as recurrent

== ENCOUNTER → 2024-09-07 08:48 | Outpatient (BNVA) | payer MEDICARE, SELFPAY | PROVIDERS: PCP Internal Medicine; Visit Provider Internal Medicine | DX: Z00.00 Encounter for general adult medical examination without abnormal findings (principal); E11.65 Type 2 diabetes mellitus with hyperglycemia; E11.40 Type 2 diabetes mellitus with diabetic neuropathy, unspecified; I10 Essential (primary) hypertension; E78.00 Pure hypercholesterolemia, unspecified; D12.6 Benign neoplasm of colon, unspecified; H91.90 Unspecified hearing loss, unspecified ear; J30.9 Allergic rhinitis, unspecified; K40.90 Unilateral inguinal hernia, without obstruction or gangrene, not specified as recurrent; Z79.899 Other long term (current) drug therapy | CPT/HCPCS: 96127; 99397 ==

== ENCOUNTER 2024-12-21 08:33 | Outpatient (REF) | payer MEDICARE, SELFPAY ==
[2024-12-21 08:48] LABS: MANUAL DIFF FLAG NO
[2024-12-21 09:02] LABS: Hematocrit 42.0 % (42.0-52.0); Hemoglobin 14.1 g/dl (14.0-18.0); Imm Gran Abs Auto 0.05 X10*3/uL (0.00-0.03); Imm Gran Pct Auto 0.8 % (0.0-0.4); Lymphocytes Absolute Auto 2.6 X10*3/uL (1.2-4.9); Mean Corpuscular HGB Conc 33.6 g/dl (31.0-36.0); Mean Corpuscular Hemoglobin 28.8 pg (27.0-33.0); Mean Corpuscular Volume 85.7 fL (80.0-98.0); NRBC Abs Auto 0.000 X10*3/uL (0.0-0.012); NRBC Pct Auto 0.0 /100WBC (0.0-0.2); Platelet Count 204 X10*3/uL (160-400); Red Blood Count 4.90 X10*6/uL (4.60-5.80); Reticulocytes Absolute 0.059 X10*6/uL (0.026-0.095); White Blood Count 6.0 X10*3/uL (4.8-10.8)
[2024-12-21 09:30] LABS: Alanine Aminotransferase 69 U/L (0-40); Albumin Level 4.7 g/dL (3.5-5.0); Alkaline Phosphatase 56 U/L (39-117); Anion Gap 12 (12-20); Aspartate Amino Transferase 38 U/L (5-37); Blood Urea Nitrogen 17 mg/dL (9-16); Calcium 9.3 mg/dL (8.4-10.2); Carbon Dioxide 23 mmol/L (22-29); Chloride 108 mmol/L (96-108); Estimated Glomerular Filt Rate > 60; Iron 103 mcg/dL (45-160); Percent Iron Saturation 32 % (15-50); Potassium 4.1 mmol/L (3.3-5.1); Sodium 139 mmol/L (135-145); Total Iron Binding Capacity 318 mcg/dL (228-428); Total Protein 7.3 g/dL (6.5-8.0); Unsaturated Iron Binding 215 ug/dL
[2024-12-21 09:51] LABS: Ferritin 230 ng/mL (20-250)
[2024-12-21 09:55] LABS: Folate 9.7 ng/mL (> or = 4.0); Vitamin B12 878 pg/mL (200-900)
== END 2024-12-21 08:34 | disposition home or self-care (01) ==
LOC: HO.LAB 08:33
PROVIDERS: PCP Internal Medicine; Visit Provider Internal Medicine
DX: E11.65 Type 2 diabetes mellitus with hyperglycemia (principal); H91.90 Unspecified hearing loss, unspecified ear
CPT/HCPCS: 36415; 80053; 82043; 82570; 82607; 82728; 82746; 83036; 83540; 85025; 85045

== ENCOUNTER 2024-12-29 08:42 | Outpatient (AMB) | payer MEDICARE, SELFPAY ==
[2024-12-29 09:18] VITALS: BP 124/86; PULSE 68; TEMP 36.2; O2SAT 97; BMI 29.9
--- NOTE | 2024-12-29 09:18 | MHC.PC.OV ---
Vital Signs 12/29/24 09:18 Height 5 ft 10.2 in Weight 209 lb 4 oz BMI 29.9 BP 124/86 Blood Pressure Location Lt brachial Position Sitting Pulse 68 Pulse Source Pulse Oximeter Temp 97.1 F Temp Source Temporal Artery Scan Pulse Oximetry (%) 97 Oxygen Delivery Method Room Air Intake Visit Reasons: anemia Allergies No Known Allergies Allergy (Verified 12/29/24 09:18) Medication List - Last Reconciled 12/29/24 by Avery Sanchez MD ascorbate calcium (vitamin C) 500 mg PO DAILY atorvastatin 10 mg PO DAILY blood sugar diagnostic As directed check the blood sugar once a day 1 touch ultra test strips blood sugar diagnostic (OneTouch Ultra Test strips) As directed check blood sugar once per day blood-glucose meter ([employer] AngelTouch Ultra2 Meter kit) As check the blood sugar once a day ciclopirox 8% 1 appl topical DAILY 4 weeks gikblglq-quklc-fcwkr-CF borate 750 mg-100 mg- 1.65 mg-108 mg ([facility]) tabs PO lancets As directed daily check the blood sugar once a day lisinopril 5 mg PO DAILY melatonin 3 mg PO BEDTIME PRN triamcinolone acetonide 0.1% 1 appl topical BID vitamin A 8,000 units PO DAILY vitamin B complex 1 tab PO DAILY vitamin E (dl, acetate) 400 units PO DAILY Tobacco use date assessed: 12/29/24 Fall risk assessment: No Falls in past year Last assessed Fall Risk: 12/29/24 Dental Screening Dental Screen Date: 12/29/24 Did you have a dental visit in the last 12 months?: Yes Did you have a dental problem in the last 6 months where you did not have access to dental care?: No Was dental information given to patient?: Patient has dentist HPI HPI Comments History of Present Illness Details History of Present Illness The patient is a 74-year-old male presenting for a follow-up visit for management of chronic conditions including diabetes mellitus, hypertension, and hypercholesterolemia. He also has a history of a right inguinal hernia and a tubular adenoma of the colon found on his last colonoscopy in February 2023. Regarding his diabetes, recent blood work from December 21 showed a fasting blood sugar of 118 and a hemoglobin A1c of 7.0, which is an increase from his previous value of 6.6. He is currently managing his diabetes with diet control alone and is not on any medication for it. An ophthalmology exam with Dr. Newton on December 15 showed no evidence of diabetic neuropathy. For hypercholesterolemia, his last labs from August showed an LDL of 63. He is on atorvastatin 10 mg daily. For hypertension, he takes lisinopril 5 mg daily. His liver function tests remain elevated, a chronic issue that has been monitored. A CT scan in 2021 revealed a liver cyst. Recent blood work showed a normal blood count with no anemia, normal electrolytes, and normal renal function with a creatinine of 1.19. There is a history of blood in the urine, but no proteinuria was noted on recent testing. Health Maintenance The patient's vaccinations were reviewed. He is up to date on his flu, shingles, and pneumonia shots. It was recommended that he receive the COVID-19 vaccine. A follow-up visit is scheduled for after the holidays to recheck labs. Social History - Diet: Patient reports he does not eat a lot of sweets and does not keep them in the house, but will occasionally eat cake. - Exercise: Patient acknowledges he is probably not exercising enough. Results - Labs (December 21): - CBC: Normal, no anemia. White blood cells and platelets within normal limits. - CMP: Normal electrolytes. Creatinine 1.19. Fasting blood sugar 118. Liver function tests elevated. - Hemoglobin A1c: 7.0%. - Urinalysis: Negative for proteinuria. - Labs (August): - Lipid Panel: LDL 63. - Imaging: - CT scan (2021): Showed a liver cyst. - Procedures: - Colonoscopy (February 2023): Tubular adenoma of the colon. - Ophthalmology exam (December 15): No diabetic neuropathy. [facility] Medical History Hematuria Puncture wound of foot, left Costochondritis Schatzki's ring Hypercholesterolemia Hypertension Type 2 diabetes mellitus with hyperglycemia Surgical History H/O colonoscopy History of ventral hernia repair History of tonsillectomy Family History Father No problems noted. Mother No problems noted. Social History Housing: House Alcohol intake: current Alcohol intake frequency: holidays/special occasions only Comment: 1 wine 6 weeks, 1 bottle beer a week Patient Tobacco Use Status: Never used Tobacco e-Cigarette/Vaping Use: Never Used Second Hand Smoke Exposure: No service: No Current occupational status: employed Cognitive needs: No Hearing needs: No Vision needs: Yes Questionnaire PHQ-9 Over the last 2 weeks, how often have you been bothered by any of the following problems? 1. Little interest or pleasure in doing things: not at all 2. Feeling down, depressed, or hopeless: not at all 3. Trouble falling or staying asleep, or sleeping too much: not at all 4. Feeling tired or having little energy: not at all 5. Poor appetite or overeating: not at all 6. Feeling bad about yourself - or that you are a failure or have let yourself or your family down: not at all 7. Trouble concentrating on things, such as reading the newspaper or watching television: not at all 8. Moving or speaking so slowly that other people could have noticed. Or the opposite - being so fidgety or restless that you have been moving around a lot more than usual: not at all 9. Thoughts that you would be better off or of hurting yourself in some way: not at all Total score: 0 Depression Screening Interpretation: Negative Depression Screening Done: Yes Source: Developed by Drs. Segun King, Corrine Lindsey, Jose Richard and colleagues, with an educational landon from [employer]. Thrive Questionnaire Date Thrive assessed: 09/01/24 I am a: Patient What is your living situation today?: I have a steady place to live Within the past 12 months, did the food you bought not last and you didn't have the money to get more?: Never true Within the past 12 months, did you worry whether your food would run out before you got money to buy more?: Never true Do you have trouble paying for medicines?: No Do you have trouble getting transportation to medical appointments?: No Do you have trouble paying your heating and electricity bill?: Yes Do you have trouble taking care of your child, family member or friend?: No Do you have trouble with day-to-day activities such as bathing, preparing meals, shopping, managing finances, etc.?: No Are you currently unemployed and looking for a job?: No Are you interested in more education?: No Please select the resources that you would like help with: None Currently or been in a relationship where the following occur: No concerns reported THRIVE Score: 1 AUDIT C Alcohol Use Questionnaire (AUDIT-C) 1. How often do you have a drink containing alcohol?: Monthly or less 2. How many drinks containing alcohol do you have on a typical day when you are drinking?: 1 or 2 3. How often do you have six or more drinks on one occasion?: Never Total Score: 1 RULA-7 AMB Questionnaire RULA-7 Date RULA - 7 assessed: 09/07/24 Feeling nervous, anxious, or on edge: 0 = Not at all Not being able to stop or control worryin = Not at all Worrying too much about different things: 0 = Not at all Trouble relaxin = Not at all Being so restless that it is hard to sit still: 0 = Not at all Becoming easily annoyed or irritable: 0 = Not at all Feeling afraid as if something awful might happen: 1 = Several days Total RULA-7 score (0-4 normal; 5-9 mild; 10-14 moderate; 15-21 severe): 1 Source: Developed by Drs. Segun King, Corrine Lindsey, Jose Richard and colleagues, with an educational landon from [employer]. Review of Systems Narrative Review of Systems - Eyes: Denies vision problems. - Genitourinary: Reports nocturia zero to one time per night. - Gastrointestinal: Reports regular bowel movements. - Hematologic: Denies anemia. Physical exam (Primary Care) Vital Signs: Last Vital Signs Temp 97.1 F 12/29/24 09:18 Pulse 68 12/29/24 09:18 BP 124/86 12/29/24 09:18 Pulse Ox 97 12/29/24 09:18 Oxygen Delivery Method Room Air 12/29/24 09:18 BMI result Body Mass Index 29.9 Tobacco/Smoking Status: Tobacco use Status Tobacco use date assessed 12/29/24 12/29/24 09:22 Patient Tobacco Use Status Never used Tobacco 12/29/24 09:22 e-Cigarette/Vaping Use Never Used 12/29/24 09:22 PHQ-9: PHQ-9 Score PHQ-9: Total score 0 12/29/24 09:44 Depression Screening Interpretation: Negative Thrive Assessment: Date of Thrive Assessment Date Thrive assessed 09/01/24 12/29/24 09:22 Currently or been in a relationship where the following occur: No concerns reported Narrative Physical Exam Const General: alert; No acute distress Eyes Conjunctivae: conjunctivae normal Resp Auscultation: clear to auscultation bilaterally Cardio Rate: regular rate Rhythm: regular rhythm GI Inspection: Yes normal to inspection Extrem General: Yes normal to inspection and No edema Office Procedures Flu Questionnaire Does the patient have a severe egg allergy?: No Does the patient have severe life threatening allergies?: No Does the patient have a fever or illness today?: No Has the patient ever had Guillain-Suffolk Syndrome?: No Has the patient ever had any past reaction to a flu shot?: No Immunizations Fluarix [id number] (PF) 45 mcg (15 mcg x 3)/0.5 mL IM syringe Performing Provider: Avery Sanchez MD [facility] Administered by: Bryanna Jimenez CMA on 12/29/24 09:25 Dose Route Admin Location Dispensed Lot Number Expiration Date [facility] Physician Interventional Cardiologist 0.5 mL IM Left Deltoid 0.5 mL [id number] 08/10/25 [id number] [employer] VIS Given Date VIS Provided VIS Publication Date 12/29/24 Single Vaccine 24 Eligibility Eligibility Date Funding Source Not [facility] Eligible 12/29/24 Private Coding Level of Care Code Est Pt Level 4 (69708) Complex EM visit Add On G2211 Diagnoses Type 2 diabetes mellitus with hyperglycemia, without long-term current use of insulin E11.65 Diabetes mellitus clinical education academic coordinator insulin use: without clinical education academic coordinator use Essential hypertension I10 Hypertension type: essential hypertension Hypercholesterolemia E78.00 Hematuria R31.9 Assessment & Plan Assessment & Plan (1) Type 2 diabetes mellitus with hyperglycemia: Comment: Dr. Gallegos Code(s): E11.65 - Type 2 diabetes mellitus with hyperglycemia Category: Medical Qualifiers: Diabetes mellitus clinical education academic coordinator insulin use: without shelter use Qualified Code(s): E11.65 - Type 2 diabetes mellitus with hyperglycemia Plan: Decrease the amount of carbohydrate intake, pasta, bread, rice and potatoes are all sugar and that is aside from all the sweet stuff, remember that fruits are good but they are Sweet also. Hemoglobin A1c goal of less than 7.0. Patient is on diet control (2) Hypertension: Code(s): I10 - Essential (primary) hypertension Category: Medical Qualifiers: Hypertension type: essential hypertension Qualified Code(s): I10 - Essential (primary) hypertension Plan: Continue with blood pressure medication. Decrease salt intake and exercise continuing with lisinopril at 5 mg once a day (3) Hypercholesterolemia: Code(s): E78.00 - Pure hypercholesterolemia, unspecified Category: Medical Plan: Avoid fried foods, chicken skin, eggs, butter margarine, pastries and meat. Be it pork or beef they have a lot of cholesterol August 2024 last blood work LDL goal of less than 100 and triglyceride of less than 150 on atorvastatin 10 mg once a day (4) Hematuria: Code(s): R31.9 - Hematuria, unspecified Category: Medical Plan Plan Patient was informed and verbally consented to the use of an ambient scribe for clinic note documentation during this visit. 1. Diabetes Mellitus, Type 2 The patient's hemoglobin A1c has increased from 6.6 to 7.0, which is at the upper limit of the goal. He is currently managing his condition with diet control only. A discussion was had regarding starting medication, specifically metformin, but the patient wishes to wait until the next lab test to decide. The plan is to continue with lifestyle and diet modifications, with an emphasis on increasing exercise, and to recheck labs after the holidays. 2. Hypertension The patient's blood pressure is managed with medication. The plan is to continue lisinopril 5 mg once a day. 3. Hypercholesterolemia The patient's cholesterol is at goal with an LDL of 63 on his current medication. The plan is to continue atorvastatin 10 mg once a day. 4. Elevated Liver Enzymes The patient has persistently elevated liver enzymes, which are stable. A prior CT scan showed a liver cyst, and fatty liver is suspected. The plan is to continue monitoring this without any immediate changes. 5. Hematuria The patient has a history of blood in the urine. He has not had a urology consultation or a urine cytology test. A urine cytology test will be ordered to be completed with his next lab draw to further evaluate this finding. Discussion Notes I reviewed the patient's recent lab work with him, noting that his blood count, electrolytes, and kidney function are all normal. I discussed the increase in his hemoglobin A1c to 7.0, explaining that while it is technically within our goal of less than 7.0, the upward trend is concerning, especially heading into the holidays. We discussed that this is managed by diet alone, and I offered to start metformin, explaining its mechanism of action, but the patient preferred to attempt lifestyle changes first and re-evaluate after the next test. I encouraged him to improve his diet and increase exercise. I reassured him that his cholesterol is well-controlled on atorvastatin and his blood pressure medication will be continued. I addressed the chronic elevated liver enzymes, noting they are stable and we will continue to monitor them. We also discussed the persistent finding of blood in his urine, and I ordered a urine cytology test to complete his workup. We reviewed his immunizations, and I recommended he get the updated COVID-19 vaccine given his diabetes. We will have a follow-up visit after the holidays to recheck his blood work. Patient Instructions - Continue taking your current medications, including lisinopril 5 mg for blood pressure and atorvastatin 10 mg for cholesterol. - Focus on diet modifications and increase your physical activity to help lower your blood sugar. - Be mindful of your sugar intake during the upcoming holiday season. - You have decided to wait on starting diabetes medication and will have your blood work rechecked after the holidays. - Please get the updated COVID-19 vaccine, as it is recommended for individuals with diabetes. - A urine cytology test has been ordered to investigate the blood in your urine. This will be done at the hospital lab during your next blood draw. - Schedule a follow-up appointment for after the holidays. Orders: Orders Urine Cytology 3 Months R31.9 - Hematuria, unspecified Hemoglobin A1c 3 Months . - Type 2 diabetes mellitus with hyperglycemia Comprehensive Met. Panel 3 Months . - Type 2 diabetes mellitus with hyperglycemia Complete Blood Count Auto Diff 3 Months . - Type 2 diabetes mellitus with hyperglycemia Lipid Panel 3 Months E11. - Type 2 diabetes mellitus with hyperglycemia, E78.00 - Pure hypercholesterolemia, unspecified UA CC w/rflx Micro + Cult 3 Months . - Type 2 diabetes mellitus with hyperglycemia, R30.0 - Dysuria Influenza [id number] Immunization Today Z23 - Encounter for immunization Prostate Specific Antigen Scr 3 Months E11.65 - Type 2 diabetes mellitus with hyperglycemia
== END 2024-12-29 09:57 | disposition home or self-care (01) ==
LOC: HO.HMCH 08:43
PROVIDERS: PCP Internal Medicine; Visit Provider Internal Medicine
DX: E11.65 Type 2 diabetes mellitus with hyperglycemia (principal); I10 Essential (primary) hypertension; E78.00 Pure hypercholesterolemia, unspecified; R31.9 Hematuria, unspecified; Z23 Encounter for immunization

== ENCOUNTER → 2024-12-29 08:42 | Outpatient (BNVA) | payer MEDICARE, SELFPAY | PROVIDERS: PCP Internal Medicine; Visit Provider Internal Medicine | DX: Z23 Encounter for immunization (principal); E11.65 Type 2 diabetes mellitus with hyperglycemia; I10 Essential (primary) hypertension; E78.00 Pure hypercholesterolemia, unspecified; R31.9 Hematuria, unspecified | CPT/HCPCS: 90471; 90656; 96127; 99212 ==